=== PATIENT | female | born 1950 | race Caucasian/White ===

== ENCOUNTER → 2023-06-06 19:01 | Outpatient (CLI) | payer MEDICARE, OTHER, SELFPAY ==
--- NOTE | 2023-06-06 | DI.MRI.S_ITS ---
PROCEDURE: MR LUMBAR SPINE WO CON INDICATIONS: spinal stenosis, lumbar region TECHNIQUE: Noncontrast sagittal T1 spin echo and T2 fast echo, sagittal STIR, and T2 fast spin echo through the lumbar spine. In cases with scoliosis, additional coronal T2 fast spin echo may be performed. COMPARISON: [facility], MR, MR LUMBAR SPINE WITHOUT CONTRAST, 09/24/2019, 9:52. [facility] Outside [facility], MR, MR LUMBAR SPINE WITHOUT CONTRAST, 05/29/2018, 13:12. FINDINGS: Image quality: Excellent. Alignment and Curvature: There is approximately 37? left convex scoliosis centered at L2-3. There is trace L1 on L2 and L2 on L3 retrolisthesis and trace L4 on L5 anterolisthesis. Patient is status post posterior fusion and discectomy and anterior fusion at L5-S1. Of note, this patient's scoliotic deformity measured approximately 23? at the same level on the CT dated September 24, 2019. Bone Marrow: Marrow is of normal overall signal. No acute vertebral body compression fractures. Spinal Cord: Conus medullaris terminates at the L1 level. Visualized cord demonstrates normal signal and size. Paraspinous Soft Tissues: No paravertebral masses. T2 hyperintense, probable cysts are present within the left kidney. T12-L1: Moderate disc desiccation and height loss. Broad-based disc bulge. Moderate facet and ligamentum flavum hypertrophy. No canal stenosis. Mild bilateral foraminal narrowing. L1-L2: Moderate disc desiccation and height loss. Severe facet ligamentum flavum hypertrophy. No canal stenosis. Moderate right foraminal stenosis. No left neural foraminal narrowing. L2-L3: Moderate disc desiccation and height loss. Severe facet ligamentum flavum hypertrophy. No canal stenosis. Severe right foraminal narrowing. Mild left foraminal stenosis. L3-L4: Moderate disc desiccation and height loss. Severe facet ligamentum flavum hypertrophy. Moderate right foraminal stenosis. Mild left foraminal narrowing. L4-L5: Severe disc desiccation and height loss. Broad-based disc bulge. Severe facet ligamentum flavum hypertrophy. Severe canal stenosis. Moderate bilateral foraminal stenosis. L5-S1: Moderate disc desiccation and height loss. Severe facet ligamentum flavum hypertrophy. No canal stenosis. Mild left foraminal narrowing. No right neural foraminal stenosis. IMPRESSION: 1. Severe levoscoliosis, markedly increased in extent when compared with the study dated September 24, 2019. 2. Severe canal stenosis is present at L4-5. No other canal stenosis of the lumbar spine. 3. Moderate right foraminal stenosis at L1-2 L3-4 and moderate bilateral foraminal stenosis at L4-5. 4. Severe right foraminal stenosis at L2-3. Dictated by: Joann Goff M.D. on 06/07/2023 at 10:06 Approved by: Joann Goff M.D. on 06/07/2023 at 10:36
== END ==
LOC: MRI 19:06
PROVIDERS: Referring Provider Orthopaedic Surgery Orthopaedic Surgery of the Spine; Visit Provider Orthopaedic Surgery Orthopaedic Surgery of the Spine
DX: M48.062 Spinal stenosis, lumbar region with neurogenic claudication (principal); M48.07 Spinal stenosis, lumbosacral region; M47.816 Spondylosis without myelopathy or radiculopathy, lumbar region; M47.817 Spondylosis without myelopathy or radiculopathy, lumbosacral region; M51.36 Other intervertebral disc degeneration, lumbar region; M41.9 Scoliosis, unspecified; Z98.1 Arthrodesis status
CPT/HCPCS: 72148

== ENCOUNTER → 2023-06-18 06:15 | Outpatient (CLI) | payer MEDICARE, OTHER, SELFPAY ==
--- NOTE | 2023-06-18 06:18 | DI.CT.S_ITS ---
PROCEDURE: CT LUMBAR SPINE WO CON INDICATIONS: Intervertebral disc disorders TECHNIQUE: Noncontrast 3 mm thick sections acquired from the T12 level to the sacrum. Sagittal and coronal reformats were constructed. For radiation dose reduction, the following was used: automated exposure control. COMPARISON: [facility], CR, XR LUMBAR SPINE 2-3V, 06/18/2023, 8:31. FINDINGS: Image quality: Excellent. Bones: Scoliosis of the lumbar spine seen. Postop changes of L5-S1 anterior and posterior fusion, partial laminectomy changes. No perihardware lucency is noted. No acute vertebral body compression fractures. No suspicious lytic or blastic bony lesions. T12-L1: No osseous central canal or bilateral neural foraminal stenosis. Moderate disc space narrowing L1-L2: Moderate osseous right neural foraminal stenosis. No osseous central canal stenosis. Severe disc space destruction with vacuum phenomena L2-L3: Moderate osseous bilateral neural foraminal stenosis, more on the right, no osseous central canal stenosis. Vacuum phenomena of the disc space L3-L4: Moderate osseous right neural foraminal stenosis. No central canal stenosis. Disc space destruction in the vacuum phenomena L4-L5: Moderate bilateral osseous neural foraminal stenosis, no osseous central canal stenosis. . Vacuum phenomena of the disc. Grade 1 anterolisthesis of L4 over L5 with bilateral pars defects. L5-S1: Spinal fusion, discectomy changes. No evidence of osseous bilateral neural foraminal or central canal stenosis. Soft tissues: No retroperitoneal masses or hematomas. Visualized aorta is normal in caliber. IMPRESSION: 1. Postop changes of the lumbar spine as noted above 2. Scoliosis and grade 1 anterolisthesis of L4 over L5. 3. Multilevel osseous neural foraminal stenosis and degenerative disc disease as noted above. Dictated by: Jony Casillas M.D. on 06/18/2023 at 13:41 Approved by: Jony Casillas M.D. on 06/18/2023 at 14:00
--- NOTE | 2023-06-18 12:38 | DI.RAD.S_ITS ---
PROCEDURE: XR LUMBAR SPINE 2-3V INDICATIONS: TLIF ROBOT L5-S1 OLD REST ARE NEW TECHNIQUE: Intraoperative views of the lumbar spine were acquired. COMPARISON: None. FINDINGS: Bones: Intraoperative views during multilevel lumbar spine TLIF. The hardware appears intact. IMPRESSION: Infra operative views during multilevel lumbar spine TLIF with intact hardware. Dictated by: Levon Clark M.D. on 06/18/2023 at 13:32 Approved by: Levon Clark M.D. on 06/18/2023 at 13:33
== END ==
PROVIDERS: PCP Family Medicine; Referring Provider Orthopaedic Surgery Orthopaedic Surgery of the Spine; Visit Provider Orthopaedic Surgery Orthopaedic Surgery of the Spine
DX: M51.16 Intervertebral disc disorders with radiculopathy, lumbar region (principal); M48.061 Spinal stenosis, lumbar region without neurogenic claudication; M41.9 Scoliosis, unspecified; Z98.1 Arthrodesis status
CPT/HCPCS: 72100; 72131; 76000

== ENCOUNTER 2023-06-18 06:19 | Inpatient (IN) | payer MEDICARE, OTHER, SELFPAY ==
[2023-06-11 08:53] VITALS: BMI 25.4
[2023-06-18] VITALS (17 sets, daily range): BP systolic 122–165; BP diastolic 57–93; PULSE 79–104; RESP 12–20; TEMP 36.1–37; O2SAT 95–100; BMI 25.4
[2023-06-18] MEDS: LACTATED RINGERS 1,000 ML 84 ML IV (07:26)
--- NOTE | 2023-06-18 07:32 | SUR.OPER ---
Prone on spine table, head in foam head support, padded chest and pelvic supports, gel pad at knees, lower legs supported by pillows; nipples, genitalia and toes free of pressure, arms secured on foam padded arm boards at <90 degrees abduction. Tape over blanket at thigh secured to table.
--- NOTE | 2023-06-18 07:56 | PM.PREOP ---
Pre-operative Note Interval Note History & Physical reviewed/Exam performed by Physician: Yes Changes to H&P: No
[2023-06-18] MEDS: CEFAZOLIN 2 GM/100 ML PREMIX 100 ML IV ×3 (08:19→23:35)
[2023-06-18] MEDS: BUPIVACAINE LIPOSOME 266 MG/20 ML VIAL INJ (08:42)
[2023-06-18] MEDS: BUPIVACAINE 0.25% (PF) 60 ML, EPINEPHrine 0.15 MG INJ (08:43)
--- NOTE | 2023-06-18 12:50 | PM.OP.1 ---
Operative Date/Time/Diagnoses Date of procedure: 06/18/23 Time of procedure: 07:40 Pre-op diagnosis: 1. L2-3 retrolisthesis 2. L3-4 L4-5 spinal stenosis 3. History of L5-S1 fusion with loosened hardware 4. Lumbar scoliosis 5. Lumbar foraminal stenosis Post-op diagnosis: same Procedure & Clinicians Procedure: 1. L3-4, L4-5 Postero-lateral and posterior interbody fusion 2. L3-4, L4-5 interbody cage placement. 3. L2-3 L5-S1 posterolateral fusion 4. L2-3, L3-4, L4-5 decompressive laminectomy with bilateral facetecomies 5.L2-3 L3-4, L4-5, L5-S1 Posterior segmental instrumentation 6. L5-S1 revision hemilaminectomy and exploration of fusion 7. [place] of bone marrow from iliac crest 8. Utilization of microsurgical technique and operating microscope 9. Utilization of robotic assisted navigation Same procedure as scheduled: Yes Indications: Patient has been having chronic back pain and worsening lumbar radiculopathy. Patient had L5-S1 anterior-posterior spinal fusion with possible pseudoarthrosis from several years ago. Patient has significant mechanical back pain due to her progressively worsening lumbar scoliosis with radiculopathy secondary to her foraminal stenosis. Patient failed multiple conservative management with worsening back pain , leg weakness and numbness in her lower extremity. Patient has been having difficulty performing activity of daily living. After discussing risks benefits of treatment options, patient elected proceed with surgery. Surgeon: Sal Schroeder [employer] H[employer] Developer: Alexandra Gary Click Yes if Unassisted: No Anesthesia Type: General Operative Notes Closure Type: primary Specimen(s): none sent Prosthetic devices, grafts, tissues, transplants, or devices: Globus CREO MIS screws, Rise cages Applied: catheter Estimated Blood Loss (mL): 100 Blood products transfused: none Procedure in detail: Patient was seen in the preoperative area. Risks and benefits of the surgery was discussed with the patient. Informed consent was obtained from the patient and placed in the chart. Surgical site was marked. Patient was taken to the operative room. General anesthesia was administered. Prophylactic antibiotic was given to the patient less than 30 min before the incision was made. Patient was placed into a prone position on the Axel table. Patient's back was then prepped and draped in the sterile fashion. Time-out was performed at this time. After patient was prepped and draped, patient's PSIS was palpated and marked bilaterally. Small 1 cm incision was made over the PSIS for placement of the reference probes. Two trocar was placed into the PSIS 1 on each side. The reference probe was attached to the trocar of the reference apparatus. At this time the C-arm imaging was used to confirm AP and lateral of L2, L3, L4, L5, and S1 vertebrae and merged the C-arm imaging using the sarvaMAIL robotic navigation system with the CT of the lumbar spine. After successful merging was completed and confirmed, skin marker was used to estrella out the skin incision using the sarvaMAIL robotic arm. Bilateral incision was made at this time. Using patient's previous scar incision was made over the L2, L3 L4, L5-S1 interval on the right side. Fascia was incised in line with skin incision. Patient's previously placed hardware over the L5-S1 level was identified by dissecting down to the level the hardware using a Bovie and a Borden. The locking caps which was removed using [employer]way[employer] screwdriver. The locking dominique was then removed from the tulips of the pedicle screws using a Mel. The pedicle screws were then removed using the screwdriver. The screws at bilateral S1 pedicles were found to be loose concerning for pseudoarthrosis at the L5-S1 level. Pre templated trajectory was used and guided using the sarvaMAIL robotic navigation system for bilateral L2, L3, L4, L5, S1 pedicle screws placement. This was done by using the robotic arm to guide the high-speed bur to make a cortical entry point. Next a drill was placed also using the robotic arm and guided using the navigation system drilling partially through bilateral L2, L3, L4, L5, S1 pedicles. Next L2, L3, L4, L5, S1 pedicle screws it was pre templated and measured was placed onto the power armored car driver and inserted into the pedicles bilaterally. After all 10 screws were placed C-arm imaging was taken of both AP and lateral to confirm the placement. Excellent placement of the screws were confirmed and a matched precisely with the pre planned screw placement using the navigation system. Larger 7.5mm diameter pedicle screws were placed into the bilateral S1 pedicles due to its previously loosened purchase. MARs retractor was inserted using [employer]le[employer] guidence. FindItus MARS retractors was placed inside the incision and docked onto the L3, L4 lamina. Using microsurgical technique and operating microscope, a L3, L4 laminectomy and L3-4, L4-5 facetectomy was performed using a Kerrison rongeur. Patient was found have severe lateral recess and neural foramen stenosis which was fully decompressed after the laminectomy facetectomy. More than 75% of the facets were removed during the process of decompression rendering L3-4, L4-5 level grossly unstable and required a fusion procedure at the same time. The laminectomy and facetectomy was performed in order to decompress patient's cauda equina as well as the nerve roots exiting at the L3-4 L4-5 level. The disc space at L3-4, L4-5 was identified, and a total diskectomy was performed at L3-4, L4-5 level. The endplates were decorticated using a rasp and shaver. The total diskectomy and decortication was performed at L3-4, L4-5 level in order to to accomplish a L3-4, L4-5 fusion. The local bone from the laminectomy and facetectomy was saved for local bone grafting. After the total diskectomy and decortication was completed, Viacell bone graft material was combined with local bone that was harvested earlier. At this time, a separate skin is incision was made over the iliac crest. A Jamshidi needle was inserted into the iliac crest through a separate skin incision. 5 cc of bone marrow aspiration was obtained through the separate skin incision using a Jamshidi needle from the iliac crest. The bone marrow aspiration was combined with local bone and the Viacell bone grafting material. The bone grafting material was placed into the L3-4, L4-5 interbody space along with a expandable cage. The cage was expanded to its maximum height using the torque limiting screwdriver. The disc preparation as well as the cage insertion were also performed under navigation guidance. After the cage was placed, AP and lateral C-arm imaging was taken to confirm placement of the cage and excellent position was confirmed. The fusion mass on the left side of L5-S1 was exposed by performing a right-sided hemilaminectomy at L5-S1 level. The hemilaminectomy was performed using the Kerrison rongeur to undercut the lamina as well removing additional epidural scar tissue for purpose of decompressing the epidural space. The fusion mass was explored and was found have visible motion indicating pseudoarthrosis at L5-S1 level. Globus MARS retractor was inserted and docked onto the L2-3, L5-S1 posterolateral gutter. Using the power drill, posterior-lateral decortication was performed at L2-3 L5-S1 level until bleeding cortical bone was identified. The remaining bone grafting material was placed into the L2-3, L5-S1 posterior lateral gutter he order to accomplish posterolateral fusion at the L2-3, L5-H5vnbea. At this time the tulips were attached to the L2, L3 L4-L5 and S1 pedicle screw shanks. This was done in L2, L3 L4-L5 and S1 pedicles bilaterally. After measuring the length of the rods, they were inserted into the tulips of the pedicle screws and locked in place using locking caps and torque limiting screwdriver bilaterally. Total 10 caps and 2 titanium rods was used in order to complete the posterior instrumentation construct. After all the hardware was placed, and confirmed with AP and lateral C-arm imaging, the wound was then irrigated with sterile normal saline and packed with Ray-Genet gauze for 3 min to accomplish hemostasis. After the gauze was removed the deep fascia was closed with #1 Vicryl suture. The subcutaneous layer was closed with 2-0 Vicryl. The skin was closed with skin yair. Patient tolerated the procedure well. There were no complications. Neuro monitoring system was used to monitor patient's neurologic status throughout entire procedure. There was no disturbance of the neural monitoring signals throughout the case. The Operation could not have been safely performed without compromising the technical result or length of the procedure, without the assistance of a skilled ophthalmology surgical technician. The ophthalmology surgical technician was medically necessary for proper positioning, retraction and manipulation of instruments, proper exposure, surgical preparation, and manipulation of tissue.
[2023-06-18] MEDS: ACETAMINOPHEN IV 1,000 MG/100 ML VIAL 400 MG IV (13:08)
[2023-06-18] MEDS: KETOROLAC 30 MG/ML VIAL 15 MG IV (13:11)
[2023-06-18] MEDS: hydrOXYzine 50 MG/ML INJ 25 MG IM (13:20)
[2023-06-18] MEDS: fentaNYL 100 MCG/2 ML INJ IV (13:29)
[2023-06-18] MEDS: HYDROMORPHONE 1 MG INJ IV ×2 (13:41→13:45)
[2023-06-18] MEDS: LACTATED RINGERS 1,000 ML 125 ML IV ×2 (14:44→22:03)
[2023-06-18] MEDS: HYDROMORPHONE 0.5 MG INJ IV ×3 (14:57→22:03)
[2023-06-18] MEDS: OXYCODONE IR 5 MG TABLET PO (15:36)
[2023-06-18] MEDS: ACETAMINOPHEN 325 MG TABLET 650 MG PO (16:07)
[2023-06-18] MEDS: CYCLOBENZAPRINE 10 MG TABLET PO ×2 (16:16→20:21)
[2023-06-18] MEDS: diazePAM 5 MG TABLET PO (16:18)
[2023-06-18] MEDS: OXYCODONE IR 5 MG TABLET 10 MG PO ×3 (16:45→23:33)
[2023-06-18] MEDS: IPRATROPIUM 0.5 MG/2.5 ML NEB INH (19:43)
[2023-06-18] MEDS: DOCUSATE 100 MG CAPSULE PO (20:21)
[2023-06-18] MEDS: MONTELUKAST 10 MG TABLET PO (20:21)
[2023-06-18] MEDS: VIT C/E/ZN/COPPR/LUTEIN/ZEAXAN CAPSULE 1 CAP PO (20:22)
[2023-06-18] MEDS: SENNOSIDES 8.6 MG TABLET 17.2 MG PO (20:22)
[2023-06-18] MEDS: PSEUDOEPHEDRINE 30 MG TABLET 60 MG PO (21:28)
--- NOTE | 2023-06-18 23:54 | PC.NURSE ---
Pt. agreed to repositioned her on her right side. Reported I have been through a lot of surgeries, but this time no matter how much pain medicine your given me it did not help. Rated her pain level @ 10/10 & encouraged & turned her turn to her side with pillow behind her back. States I was on my back for a while cause it hurts to move. Administered 0100 dose of Oxycodone early due highest pain scale, had her Dilaudid @ 2203. Declined some Diazepam, after we repositioned her she states this fell a little better. Encouraged to change position every 2 hours or more often to help ease her pain. Will continue plan of care & monitor.
[2023-06-19] VITALS (11 sets, daily range): BP systolic 113–149; BP diastolic 44–94; PULSE 78–108; RESP 16–20; TEMP 35.7–37.4; O2SAT 90–100
[2023-06-19] MEDS: HYDROMORPHONE 0.5 MG INJ IV ×7 (00:59→21:43)
--- NOTE | 2023-06-19 01:26 | PC.NURSE ---
Pain level 8/10 requesting pain medication, 0.5 mg. Dilaudid IVP admin. Pt. drowsy falls asleep in the middle of the conversation. Will monitor, 1 liter of O2/NC SPO2 97%
[2023-06-19] MEDS: ACETAMINOPHEN 325 MG TABLET 650 MG PO ×4 (04:15→21:28)
[2023-06-19] MEDS: OXYCODONE IR 5 MG TABLET 10 MG PO ×5 (04:15→21:26)
[2023-06-19 04:41] LABS: Hematocrit 31.1 % (36-46); Hemoglobin 10.6 g/dL (12.0-16.0)
[2023-06-19] MEDS: diazePAM 5 MG TABLET PO ×2 (05:04→21:25)
[2023-06-19] MEDS: IPRATROPIUM 0.5 MG/2.5 ML NEB INH ×3 (07:18→18:31)
--- NOTE | 2023-06-19 07:42 | PM.PNPO.1 ---
Subjective Subjective Date Patient Seen: 06/19/23 Time Patient Seen: 07:42 Interval history: Pt lying in bed, receiving breathing treatment. She has a h/o 1/2 ppd smoking; ordered a nicotine patch, but says she does not need it. She has a h/o opioid dependence, 60mg oxycodone/day at baseline. She c/o 'the worst pain of my life.' Has pain in back and legs. Despite this, is hopeful to go home tomorrow and to this end is in agreement w/ discontinuation of catheter today. Exam Vital Signs (past 8 hours): - 06/18/23 23:56 06/19/23 03:38 06/19/23 07:21 Temperature 98.3 F 98.1 F Pulse Rate 86 86 Respiratory Rate 20 18 Blood Pressure 144/82 H 141/63 H Pulse Oximetry 97 98 Oxygen Delivery Method Nasal Cannula Oxygen Flow Rate 1 1 Oxygen Delivery Method Nasal Cannula Oxygen Flow Rate 1 Narrative Exam Narrative: 4/5 hip flexors on right, 3/5 on left. 5/5 quadriceps, hamstrings, DF, PF, EHL bilaterally. Sensation to light touch intact throughout BLE, calves soft and compressible. SCDs on and functioning. Objective Labs 06/19/23 04:32 Labs: Laboratory Results - last 24 hr 06/19/23 04:32 Hgb 10.6 L Hct 31.1 L PFSH Medical History (Updated 06/18/23 @ 16:03 by Alexandra Gary PA-C) Chronic, continuous use of opioids Arthritis Spinal stenosis Breast cancer, right (1986) Seasonal allergies Sciatica Surgical History (Updated 06/19/23 @ 07:45 by Alexandra Gary PA-C) History of bunionectomy of right great toe History of breast implant Hx of breast reconstruction (1987) Hx of bilateral mastectomy (1986) Hx of repair of right rotator cuff (2020) Hx of foot surgery Hx of lumbosacral spine surgery (~2015) Hx of lumbosacral spine surgery (2019) Hx of vaginal surgery (2015) Hx of tubal ligation Hx of bilateral cataract extraction Social History household members: family Smoking Status: Current every day smoker alcohol intake: current Assessment & Plan Post-op Assessment and plan (1) S/P lumbar fusion: Assessment and Plan narrative: 1) Discontinue silveira today. Work w/ PT. 2) Continue current pain regimen: oxy 10mg q4hrs scheduled w/ oxy 5mg q3hrs PRN for breakthrough pain. Cyclobenzaprine scheduled and diazepam PRN for muscle spasm. 3) Mechanical VTE prophylaxis with SCDs; these should be on and functioning at all times while pt in bed. 4) Pt is hopeful to go home tomorrow w/ Enrique, her grandson. We discussed that at discharge she would receive ONE prescription for oxycodone 5mg (#40), cyclobenzaprine 10mg (#40), and diazepam 5mg (#30) from our providers. She is to continue her Percocet as normally prescribed by her pain management provider. Postoperative Procedures: Procedures Operation Date: 06/18/23 07:45 Actual Procedure Side Surgeon p L3-5 TRANSFORAMINAL LUMBAR INTERBODY FUSION, L2-L3 POSTERIOR SPINAL FUSION, L2-S1 POSTERIOR SEGMENTAL INSTRUMENTATION-Robot Sal Schroeder MD Postoperative day: 1 Quality VTE Deep Vein Thrombosis/Pulmonary Embolism Present on Admission: No
[2023-06-19] MEDS: VIT C/E/ZN/COPPR/LUTEIN/ZEAXAN CAPSULE 1 CAP PO ×2 (08:45→21:24)
[2023-06-19] MEDS: CYCLOBENZAPRINE 10 MG TABLET PO ×4 (08:45→21:28)
[2023-06-19] MEDS: DOCUSATE 100 MG CAPSULE PO ×2 (08:45→21:26)
[2023-06-19] MEDS: polyethylene glycoL 3350 17 GM POWD.PACK PO (08:46)
[2023-06-19] MEDS: PSEUDOEPHEDRINE 30 MG TABLET 60 MG PO ×3 (08:46→21:25)
[2023-06-19] MEDS: LACTATED RINGERS 1,000 ML 125 ML IV (08:47)
--- NOTE | 2023-06-19 10:15 | PT.IIE ---
Current Diagnoses Opioid use, unspecified, uncomplicated (06/18/23) Scoliosis, unspecified (06/18/23) Spinal stenosis, lumbar region with neurogenic claudication (06/18/23) Arthrodesis status (06/18/23) Surgery Performed Operation Date: 06/18/23 07:45 Actual Procedures p L3-5 TRANSFORAMINAL LUMBAR INTERBODY FUSION, L2-L3 POSTERIOR SPINAL FUSION, L2-S1 POSTERIOR SEGMENTAL INSTRUMENTATION-Robot - Sal Schroeder MD Surgical History (Last Updated 06/11/23 @ 09:19 by Cristina Byrd RN) History of breast implant History of bunionectomy of right great toe Hx of bilateral cataract extraction Hx of bilateral mastectomy (1986) Hx of breast reconstruction (1987) Hx of foot surgery Hx of lumbosacral spine surgery (2019) Hx of lumbosacral spine surgery () Hx of repair of right rotator cuff (2020) Hx of tubal ligation Hx of vaginal surgery (2015) Medical History (Last Updated 06/18/23 @ 16:03 by Alexandra Gary PA-C) Arthritis Breast cancer, right (1986) Chronic, continuous use of opioids Sciatica Seasonal allergies Spinal stenosis Physical Therapy Inpatient Evaluation/Re-Eval M1 PT/OT-IP Prior Functional Status Start: 06/19/23 12:00 Freq: NEEDED Status: Active Protocol: Document 06/19/23 10:15 AB (Rec: 06/19/23 12:10 AB [id number]) Medical Review Prior Functional Status Medical History Reviewed Yes Communication Pt is an effective verbal communicator. Mobility and Gait Pt was IND for all mobility. She states that she is usually standing because sitting is more painful. Activities of Daily Living and IADL's Pt was IND in her ADLs at baseline but states that her pain was making things more difficult to perform. Social History Household Members family Living Arrangements House Number of Floors (Floors) One Floor Number of Stairs To Enter/Railing? Pt has 3 steps to enter with B wide railings and can only hold on to one rail at a time Home Environment Standard Height Toilet,Walk in Shower,Built-In Shower Seat Home Equipment Front Wheel Walker,Raised Toilet Seat w/Armrests,Shower Seat with Backrest,Hand Held Shower,Sales And Marketing Administrator,Grab Bars In Shower Employment Status Retired Additional Social History Comment Pt's grandson lives with her and is able to stay with her daytime babysitter. She has an adjustible bed and a piece of furnature called a slipper chair that she uses for LB dressing which is closer to the ground. M2 PT-IP Current Condition Start: 06/19/23 12:00 Freq: NEEDED Status: Active Protocol: Document 06/19/23 10:15 AB (Rec: 06/19/23 12:10 AB [id number]) Physical Therapy Current Condition Current Condition Evaluation Date 06/19/23 Treatment Diagnosis s/p L2-S1 TLIF; difficulty in walking Onset Date 06/18/23 M3 PT-IP Subjective Start: 06/19/23 12:00 Freq: NEEDED Status: Active Protocol: Document 06/19/23 10:15 AB (Rec: 06/19/23 12:10 AB [id number]) Subjective Physical Therapy Visit Type Type Initial Evaluation Visit Start Time 10:15 Visit Stop Time 11:00 Number of TRENCH DIGGER HELPER Visits 0 Physical Therapy Visit Comments Patient Comments agreeable to do PT Therapy Pain Assessment Pain When Pain Assessed At Rest Pain Present Pain Present Pain Reported Location Right Back Intensity 5 Pain Behaviors Guarding,Holding Area Pain Management Techniques Apply Cold,Distraction, Modification of Treatment,Re- positioning,Timing of Activity with Medications M4 PT-IP Mobility and Gait Start: 06/19/23 12:00 Freq: NEEDED Status: Active Protocol: Document 06/19/23 10:15 AB (Rec: 06/19/23 12:10 AB [id number]) PT-Bed Mobility Assessment Rolling Type of Rolling Log Rolling Level of Assist Maximal Assistance Supine to Sit Supine to Sit Maximum Assistance,1 Person Assistance,2 Person Assistance ,Head of Bed Elevated,Bedrails PT-Transfer Assessment Sit to and From Stand Sit to and from Stand Minimal Assistance,1 Person Assistance,Use of Upper Extremities Equipment Transfer Assistive Device Gait Belt,Front Wheeled Walker Orthotic/Prosthetic Devices or Brace: No Transfers Transfer Destination Chair Transfer Technique ambulated Transfer Ability Level of Assist Minimal Assistance,1 Person Assistance,Use of Upper Extremities Comments Mobility Comments pt supine in bed and agreed to do PT. obtained PLOF and home set up from pt. educated pt regarding back precautions and log roll bed mobility. post-op folder provided and reiviewed contents. pt completed supine to sit log roll max A x 1-2 and max cues . pt requiring 2 attempts to complete task with c/o increase LBP and guarding. pt requiring mod to max A for sitting balance. pt stand up once seated and unable to tolerate sitting position needing to stand up. pt ambulated to the chair using FWW ~ 15 ft min A and cues. pt presents with shuffling gait. pt agreed to sit on the chair. positioned pt on the chair. ice pack provided. call light and table placed within reach. Left pt with OT. Gait Assessment Gait Gait Assistance Required: Minimum Assistance Distance (Feet) 15 Able to Maintain Weight Bearing Status Yes During Gait Assistive Devices Assistive Device Gait Belt,Front Wheeled Walker Orthotic/Prosthetic Devices or Brace: No Gait Deviations General Gait Pattern Ataxic,Decreased Stride Length ,Decreased Feet Clearance,Step -to Gait Factors Limiting Gait Function Factors Limiting Gait Function Decreased Activity Tolerance, Decreased Strength,Difficulty Following Directions,Limited Range of Motion,Pain,Poor Balance,Poor Safety Awareness PT-Balance Assessment Sitting Balance and Reactions Static Sitting Balance Ability Fair Dynamic Sitting Balance Ability Poor Standing Balance and Reactions Static Standing Balance Ability Fair Dynamic Standing Balance Ability Fair Device Used FWW M5 PT-IP Objective Assessments Start: 06/19/23 12:00 Freq: NEEDED Status: Active Protocol: Document 06/19/23 10:15 AB (Rec: 06/19/23 12:10 AB [id number]) Orientation Orientation/Cognition Level of Alertness Alert Orientation Name,Situation Safety Awareness Decreased Safety Awareness Gross Range of Motion Lower Extremity ROM Assessment Within Functional Limits Strength Lower Extremity Strength Assessment Bilaterally Impaired Comments Strength Comments RLE: 3+/5 LLE: 4-/5 Coordination Assessment Gross Coordination Gross Coordination WNL Muscle Tone Muscle Tone WNL Yes M6 PT-IP Treatment Start: 06/19/23 12:00 Freq: NEEDED Status: Active Protocol: Document 06/19/23 10:15 AB (Rec: 06/19/23 12:10 AB [id number]) Physical Therapy Treatment Education Education Provided Precautions,Weight Bearing Status,Post-Op Packet,Safety M7 PT-IP Assessment and Plan Start: 06/19/23 12:00 Freq: NEEDED Status: Active Protocol: Document 06/19/23 10:15 AB (Rec: 06/19/23 12:10 AB [id number]) PT Summary Assessment and Plan Potential Rehabilitation Potential Fair Status of Condition at Evaluation Evolving Summary Impairments Pain,ROM,Strength,Balance, Coordination,Sensation,Tone, Cognition,Bed Mobility, Transfers,Gait,Activity Tolerance Assessment Summary pt is a 73 y/o F s/p L2-S1 TLIF POD 1. pt has back precautions. pt with chronic pain and c/o increase LBP with mobility. pt requiring max Ax 1-2 with bed mobility and unable to tolerate sitting position. required min A for sit to stand and ambulation using FWW. caregiver training set up for this afternoon at ~ 2pm. will continue to assess progress. Goals Bed Mobility Goal Independent,Standby Assistance Transfer Goal Standby Assistance,Front Wheeled Walker Gait Goal Standby Assistance,Front Wheel Walker Gait Distance 200 Other Goals up/down 3 steps 1 rail SBA Days to Meet Goals 10 Frequency of Treatment Frequency Of Treatment Twice a Day Treatment Plan Physical Therapy Treatment Plan Bed Mobility Training,Transfer Training,Gait Training, Therapeutic Exercise,Balance Retraining,Post Op Education, Discharge Planning,Hot or Cold Pack,Neuromuscular Re-ed, Coordination Retraining,Manual Therapy Precautions Lumbar Precautions Log Roll,No Twisting,Limit Bending,Lifting Restriction of 10 lbs,Gait Belt above Incisional Area Recommendations To Nursing Amount of Assist Needed 1 Person Assist Discharge Recommendations PT Discharge Recommendations Home with 16/10 Assist Available,Home Health Transportation Needs at Discharge Private Vehicle,Wheelchair/ Cabulance
--- NOTE | 2023-06-19 11:02 | OT.IP.EVAL ---
Current Diagnoses Opioid use, unspecified, uncomplicated (06/18/23) Scoliosis, unspecified (06/18/23) Spinal stenosis, lumbar region with neurogenic claudication (06/18/23) Arthrodesis status (06/18/23) Surgery Performed Operation Date: 06/18/23 07:45 Actual Procedures p L3-5 TRANSFORAMINAL LUMBAR INTERBODY FUSION, L2-L3 POSTERIOR SPINAL FUSION, L2-S1 POSTERIOR SEGMENTAL INSTRUMENTATION-Robot - Sal Schroeder MD Past Medical History (Last Updated 06/18/23 @ 16:03 by Alexandra Gary PA-C) Arthritis Breast cancer, right (1986) Chronic, continuous use of opioids Sciatica Seasonal allergies Spinal stenosis Surgical History (Last Updated 06/11/23 @ 09:19 by Cristina Byrd RN) History of breast implant History of bunionectomy of right great toe Hx of bilateral cataract extraction Hx of bilateral mastectomy (1986) Hx of breast reconstruction (1987) Hx of foot surgery Hx of lumbosacral spine surgery (2019) Hx of lumbosacral spine surgery (~2015) Hx of repair of right rotator cuff (2020) Hx of tubal ligation Hx of vaginal surgery (2015) Occupational Therapy Inpatient Evaluation/Re-Eval M1 PT/OT-IP Prior Functional Status Start: 06/19/23 11:05 Freq: NEEDED Status: Active Protocol: Document 06/19/23 11:05 CGR (Rec: 06/19/23 11:18 CGR [id number]) Medical Review Prior Functional Status Medical History Reviewed Yes Communication Pt is an effective verbal communicator. Mobility and Gait Pt was IND for all mobility. She states that she is usually standing because sitting is more painful. Activities of Daily Living and IADL's Pt was IND in her ADLs at baseline but states that her pain was making things more difficult to perform. Social History Household Members family Living Arrangements House Number of Floors (Floors) One Floor Number of Stairs To Enter/Railing? Pt has 3 steps to enter with B wide railings. Home Environment Standard Height Toilet,Walk in Shower,Built-In Shower Seat Home Equipment Front Wheel Walker,Raised Toilet Seat w/Armrests,Shower Seat with Backrest,Automobile Rental Agent, Grab Bars In Shower Employment Status Retired Additional Social History Comment Pt's grandson lives with her and is able to stay with her radio time buyer. She has an adjustible bed and a piece of furnature called a slipper chair that she uses for LB dressing which is closer to the ground. M2 OT-IP Current Condition Start: 06/19/23 11:05 Freq: Status: Active Protocol: Document 06/19/23 11:05 CGR (Rec: 06/19/23 11:18 CGR [id number]) Occupational Therapy Current Condition Current Condition Evaluation Date 06/19/23 Treatment Diagnosis L2-S1 TLIF Diagnosis Onset Date 06/18/23 Post Operative Precautions Lumbar Precautions Log Roll,No Twisting,Limit Bending,Lifting Restriction of 10 lbs,Gait Belt above Incisional Area M3 OT- IP Subjective and Pain Start: 06/19/23 11:05 Freq: Status: Active Protocol: Document 06/19/23 11:05 CGR (Rec: 06/19/23 11:18 CGR [id number]) OT- Subjective Occupational Therapy Visit Type Type Initial Evaluation Visit Start Time 10:28 Visit Stop Time 11:02 Notes Partial co-treat with P.T. given pt's pain level. Occupational Therapy Visit Comments Patient Comments I am usually standing because it is more comfortable than sitting. OT Pain Assessment Pain When Pain Assessed At Rest Pain Present Pain Present Pain Reported Location Right Back Intensity 8 Scale Used Numeric (0 - 10) Pain Behaviors Calling Out,Guarding,Moaning Management Techniques Apply Cold,Distraction, Modification of Treatment,Re- positioning,Timing of Activity with Medications M4 OT- IP ADL's Start: 06/19/23 11:05 Freq: Status: Active Protocol: Document 06/19/23 11:05 CGR (Rec: 06/19/23 11:18 CGR [id number]) OT [id number] Comments OT Self-Feeding Comments not meal time OT ADL-Grooming General Evaluation Grooming Ability Standby Assistance Areas Needing Assistance Retrieving/Set-up of Grooming Items,Face Washing Comments OT Grooming Comments seated in chair OT ADL-Oral Care General Eval Oral Care Ability Standby Assistance Areas of Assistance Brushing Teeth,Retrieving/Set- Up of Items Comments Oral Care Comments seated in chair OT ADL-Dressing General Eval Lower Body Dressing Ability Total Assistance Areas Needing Assistance Socks OT ADL-Toileting General Evaluation Toileting Ability Total Assistance Comments OT Toileting Comments silveira OT ADL-Bathing Comments OT Bathing Comments not performed M5 OT- IP IADL's Start: 06/19/23 11:05 Freq: Status: Active Protocol: Document 06/19/23 11:05 CGR (Rec: 06/19/23 11:18 CGR [id number]) OT-Instrumental Activities of Daily Living Deficits IADL Deficits Identified No Deficits Home Safety Awareness Awareness of Need for Assistance at Home Good Awareness Ability to Problem Solve Emergency Able to Problem Solve Situations Medication Management Medication Management No Deficits Identified Money Management Money Management No Deficits Identified Meal Preparation Meal Preparation Caregiver Provides Assist Special Officer Special Officer Caregiver Provides Assist Driving Driving Comments 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 M6 OT- IP Functional Cognition Start: 06/19/23 11:05 Freq: Status: Active Protocol: Document 06/19/23 11:05 CGR (Rec: 06/19/23 11:18 CGR [id number]) Cognitive Factors Limiting Selfcare Function Cognitive Ability Level of Alertness Alert Patient Orientation Name,Age,Birthday,Month,Date, Year,Day of Week,Place, Situation Attention Span Ability Capable of Focused Attention, Capable of Sustained Attention Ability to Follow Commands Able to Follow One Step Commands with Increased Time, Able to Follow One Step Commands with Repetition OT- Vision and Hearing OT- Hearing Assessment OT- Hearing Assessment WFL OT- Vision Assessment Visual Acuity No Vision Aides At Hospital Visual Attentiveness WFL Occular Pursuits WFL Visual Convergence WFL Vision Assessment Comments Pt states she wears glasses for distance M7 OT- IP Mobility and Balance Start: 06/19/23 11:05 Freq: Status: Active Protocol: Document 06/19/23 11:05 CGR (Rec: 06/19/23 11:18 CGR [id number]) OT- Bed Mobility Assessment Rolling Type of Rolling Log Rolling,Roll to Left Level of Assistance Maximum Assistance,1 Person Assistance,2 Person Assistance Supine to Sit Supine to Sit Assist Maximum Assistance,1 Person Assistance,2 Person Assistance Scooting Scooting to Edge of Bed Moderate Assistance,1 Person Assistance OT-Transfer Assessment Sit to and From Stand Sit to and from Stand Minimal Assistance Transfers Transfer Ability Minimal Assistance Technique Transfer Destination Bed,Chair Transfer Technique Stand Step Pivot Devices Transfer Assistive Devices Gait Belt,Front Wheeled Walker Comments Mobility Comments Pt needed max a for log roll and supine to sit, mod a for scooting and min a once standing. OT- Gait Assessment Gait Gait Assistance Required: Minimum Assistance Assistive Devices Assistive Device Gait Belt,Front Wheeled Walker Comments Gait Ability Comments Mobility in the room, min a with FWW and extra time. Pt taking small steps. OT- Balance Assessment Sitting Balance and Reactions Static Sitting Balance Ability Fair Dynamic Sitting Balance Ability Fair M8 OT- IP Objective Assessments Start: 06/19/23 11:05 Freq: Status: Active Protocol: Document 06/19/23 11:05 CGR (Rec: 06/19/23 11:18 CGR [id number]) OT Gross Range of Motion Upper Extremity Range of Motion Assessment Within Functional Limits OT Strength Upper Extremity Strength Assessment Within Functional Limits Comments Strength Comments grossly 4/5, shlds not fully tested d/t recent back sx. OT- Coordination Assessment Upper Extremity Finger to Nose Test Within Functional Limits Finger Tapping Test Within Functional Limits Comments Coordination Comments Pt states she has arthritic changes to her hands that hurt in the mornings. OT-Muscle Tone Assessment Muscle Tone WNL Yes OT Sensation Assessment Edema Edema Absent M9 OT- IP Assessment and Plan Start: 06/19/23 11:05 Freq: Status: Active Protocol: Document 06/19/23 11:05 CGR (Rec: 06/19/23 11:18 CGR [id number]) OT Summary Assessment and Plan Potential Rehabilitation Potential Good Analytic Complexity at Evaluation Moderate Summary OT Impairments Pain,Balance,Functional Mobility,Grooming,Dressing, Toileting,Bathing,Toilet Transfers,Shower Transfers, Activity Tolerance Progress Towards Goals Slow Progress due to Pain Assessment Summary Pt presents as a moderate complexity evaluation s/p admit for L2-S1 TLIF. Pt needed significant assist for bed mobility today but is likely to improve. Pt did well with her mobility around the room and will continue to benefit from OT services. Pt is planning to discharge home tomorrow. Recommend d/c to home with family support. Goals Self-Feeding Goal Independent Grooming Goal Independent Dressing Goal Independent,Automobile Rental Agent,Sock Aid Toileting Goal Independent Bathing Goal Independent Toilet Transfer Goal Independent Shower Transfer Goal Independent Days to Meet Goals 3 Frequency of Treatment Frequency Of Treatment Once a Day Treatment Plan OT Treatment Plan ADL Training,Functional Mobility,Patient/Family Education,Discharge Planning Other Treatment Recommendations and Next LB dressing, ADLs standing, Treatment Focus home safety Discharge Recommendations OT Discharge Recommendations Home with Assistance Transportation Needs at Discharge Private Vehicle
--- NOTE | 2023-06-19 12:12 | PC.NURSE ---
Physical therapy found a pill in pt's bed and RN took to pharmacy to identify- It was was - pt's home medication as we do not stock this med. This RN had a conversation with pt regarding not taking home medications for safety reasons. pt stated that she understood. Informed pt that her home medications had to be locked in pharmacy- Found a small bag filled with home medications and two inhalers. Walked medications down to pharmacy and gave to Susie.
--- NOTE | 2023-06-19 13:58 | PT.IPTN ---
Current Diagnoses Opioid use, unspecified, uncomplicated (06/18/23) Scoliosis, unspecified (06/18/23) Spinal stenosis, lumbar region with neurogenic claudication (06/18/23) Arthrodesis status (06/18/23) Surgery Performed Operation Date: 06/18/23 07:45 Actual Procedures p L3-5 TRANSFORAMINAL LUMBAR INTERBODY FUSION, L2-L3 POSTERIOR SPINAL FUSION, L2-S1 POSTERIOR SEGMENTAL INSTRUMENTATION-Robot - Sal Schroeder MD Physical Therapy Treatment Note M2 PT-IP Current Condition Start: 06/19/23 12:00 Freq: NEEDED Status: Active Protocol: Document 06/19/23 10:15 AB (Rec: 06/19/23 12:10 AB [id number]) Physical Therapy Current Condition Current Condition Evaluation Date 06/19/23 Treatment Diagnosis s/p L2-S1 TLIF; difficulty in walking Onset Date 06/18/23 M3 PT-IP Subjective Start: 06/19/23 12:00 Freq: NEEDED Status: Active Protocol: Document 06/19/23 13:58 AB (Rec: 06/19/23 16:43 AB [id number]) Subjective Physical Therapy Visit Type Type Treatment Note Visit Start Time 13:58 Visit Stop Time 14:50 Number of REFRIGERATOR CRATER Visits 0 Physical Therapy Visit Comments Patient Comments c/o increase LBP L>R Therapy Pain Assessment Pain When Pain Assessed At Rest Pain Present Pain Present Pain Reported Location Right Back Scale Used pain scale not stated Pain Management Techniques Distraction,Modification of Treatment,Re-positioning, Timing of Activity with Medications M4 PT-IP Mobility and Gait Start: 06/19/23 12:00 Freq: NEEDED Status: Active Protocol: Document 06/19/23 13:58 AB (Rec: 06/19/23 16:43 AB [id number]) PT-Bed Mobility Assessment Sit to Supine Sit to Supine Maximum Assistance,1 Person Assistance,2 Person Assistance ,Bedrails Scooting Scooting Up and Down in Bed Maximum Assistance PT-Transfer Assessment Sit to and From Stand Sit to and from Stand Maximum Assistance,1 Person Assistance,2 Person Assistance ,Use of Upper Extremities Equipment Transfer Assistive Device Gait Belt,Front Wheeled Walker Orthotic/Prosthetic Devices or Brace: No Transfers Transfer Destination Bed Transfer Technique Stand Step Pivot Transfer Ability Level of Assist Moderate Assistance,1 Person Assistance,Use of Upper Extremities Comments Mobility Comments pt sitting on the chair and grandson in room with pt. pt c/o increase LBP. son stated that pt's pain should be controlled. pt just received pain med ~ 30 min prior to PT session. called nurse for pain. trini stated that he has been assisting pt for 3 years and that he knows how to assist pt and is not really receptive to education/ training. pt informed trini that PT still needs to see how he assists her. nurse gave pt IV dilaudid for pain meds. educated pt's grandson on safety belt management and pt' s back precautions and log roll bed mobility. trini was able to put safety belt on pt. attempted sit to stand from the chair but pt unable to complete due to c/o increase LBP with L>R. attempted x 2. NAC came in to assist and pt completed sit to stand max A x 2 and max cues. pt requested to go back to bed and completed step transfers to bed usign fWW mod A and max cues. son stated that pt will not be able to get into the bed the way that pt did with PT. stated that pt has a high bed. asked trini if pt buttocks will be able to reach the EOB and pt can scoot back onto the chair and a step stool also can be used. trini stated that pt 's buttocks will not be able to reach but per pt, she will be able to. informed pt and son that the other option to to sleep on a recliner for now but pt stated that she does not have a recliner. explained to pt and grandson that home set up should have been done prior to surgery and PT can only make recommendations. pt completed sit to supine max A x1- 2 and max cues. positioned pt in bed. call light and table placed within reach. set up another caregiver training for tomorrow. son hesitant to do training but stated that he can come whatever time pt asks him to come. PT asked pt on what time she wants for caregiver training and pt stated, whatever time PT wants . initially asked for 9 am but when pt asked her grandson , trini will not be able to come at 9. Set up caregiver training at 1100 am . Son also clarified stairs at home. stated that pt will be going into the house through the garage with 2 steps to enter without rails. pt will not be going to the front of the house with 3 steps and bilateral wide rails. stated that the stairs from the garage are smaller and that he will assist with the stairs and that he is more stable the the rails. M5 PT-IP Objective Assessments Start: 06/19/23 12:00 Freq: NEEDED Status: Active Protocol: Document 06/19/23 10:15 AB (Rec: 06/19/23 12:10 AB [id number]) Orientation Orientation/Cognition Level of Alertness Alert Orientation Name,Situation Safety Awareness Decreased Safety Awareness Gross Range of Motion Lower Extremity ROM Assessment Within Functional Limits Strength Lower Extremity Strength Assessment Bilaterally Impaired Comments Strength Comments RLE: 3+/5 LLE: 4-/5 Coordination Assessment Gross Coordination Gross Coordination WNL Muscle Tone Muscle Tone WNL Yes M6 PT-IP Treatment Start: 06/19/23 12:00 Freq: NEEDED Status: Active Protocol: Document 06/19/23 13:58 AB (Rec: 06/19/23 16:43 AB [id number]) Physical Therapy Treatment Education Education Provided Precautions,Safety M7 PT-IP Assessment and Plan Start: 06/19/23 12:00 Freq: NEEDED Status: Active Protocol: Document 06/19/23 13:58 AB (Rec: 06/19/23 16:43 AB [id number]) PT Summary Assessment and Plan Potential Rehabilitation Potential Fair Summary Impairments Pain,ROM,Strength,Balance, Coordination,Sensation,Tone, Cognition,Bed Mobility, Transfers,Gait,Activity Tolerance Assessment Summary Pt's trini in room for caregiver training and initiated but needs more training. Pt unable to tolerate much activity this afternoon due to c/o increase back pain. Trini stated that he has been assisting pt for the last 3 years and does not feel like he needs the training and tends not to be very receptive to training but agreed to do training. set up another caregiver training at 11 am tomorrow. will continue to assess progress. Goals Bed Mobility Goal Independent,Standby Assistance Transfer Goal Standby Assistance,Front Wheeled Walker Gait Goal Standby Assistance,Front Wheel Walker Gait Distance 200 Other Goals up/down 2 steps PHYSICIAN GENERAL PRACTICE min A Days to Meet Goals 10 Frequency of Treatment Frequency Of Treatment Twice a Day Treatment Plan Physical Therapy Treatment Plan Bed Mobility Training,Transfer Training,Gait Training, Therapeutic Exercise,Balance Retraining,Post Op Education, Discharge Planning,Hot or Cold Pack,Neuromuscular Re-ed, Coordination Retraining,Manual Therapy Precautions Lumbar Precautions Log Roll,No Twisting,Limit Bending,Lifting Restriction of 10 lbs,Gait Belt above Incisional Area Recommendations To Nursing Amount of Assist Needed 2 Person Assist Discharge Recommendations PT Discharge Recommendations Home with 16/10 Assist Available,Home Health Transportation Needs at Discharge Private Vehicle,Wheelchair/ Cabulance
--- NOTE | 2023-06-19 14:00 | CM.DANOTE ---
Initial DCP Assessment Visit Note Reviewed the EMR and team rounds for pt's medical status and anticipated d/c needs. Met with pt at bedside to introduce self and role, pt was found to be sitting upright in the recliner, somnolent, c/o severe pain, the worst pain I've had in my entire life. She had just been medicated 20-minutes prior to this visit, however she does have a known high tolerance to opioids due to chronic pain and multiple prior surgeries. She resides in her own home in [place] with her grandson, who will be providing care/assistance for her at d/c, as well as transport home. Her anticipated d/c is for tomorrow, 06/19. Payor: Medicare Attending: Dr. Schroeder Pt is a 73 year-old F post-op day 1 from her TLIF surgery yesterday. She is having postoperative complications with pain, limiting her ability to tolerate working with therapies. She is typically independent at baseline, however has been more dependent on her grandson for assistance due to pain limiting her mobility and ADL's. DCP will continue to follow for final PT/OT eval/recommendations for OP therapies/needs. Discharge Planning/Care Management CM Discharge Assessment Start: 06/19/23 13:52 Freq: Status: Active Protocol: Document 06/19/23 13:52 DPL (Rec: 06/19/23 14:00 DPL [id number]) Discharge Planning Assessment Assigned Glass Cutter FERDINAND Acuna Advance Directives? Yes Advance Directives on File No History Provided By Patient,Medical Record Has Patient been admitted in last 30 No days? Prior Living Arrangements House Household Members family Comment grandson Type of transporation used prior to Drives own vehicle admit Independent with ADL's modified independent Is patient alert and oriented? Yes Caregiver for Another No Comment OP pain injections DME Already Rented / Owned Elevated Toilet Seat,FWW / Walker Barriers to Discharge No Discharge Plan Home Transportation Arrangement Grandson Referrals Initiated None needed Whiteboard Updated in Patient Room with Yes name and ext. # of Glass Cutter Review Status In Process Please Provide Date Initial DC 06/19/23 Assessment Was Performed Pre-Anesthesia Assessment Start: 06/11/23 08:52 Freq: Status: Active Protocol: Document 06/11/23 08:53 CAB (Rec: 06/11/23 09:32 CAB [id number]) Pre-Anesthesia Assessment Patient Information Reviewed Via Phone Assessment Assessment Completed With Patient Comment Labs/EKG done 05/18/23 [facility] per pt, not here Primary Care Provider Brennan Luis Comment PCP visit 03/28/23 &clearance form 03/22/23 scanned and in folder Seen Specialist in Last 12 Months Yes Specialist Seen Orthopedist Primary Language French Retail Sales Consultant Required No Height 154.94 cm Weight 61.235 kg Body Mass Index (BMI) 25.4 Hearing Ability Normal Visual Assist Glasses Dentition Type Teeth, Natural Present,Teeth, Missing,Dental Implants Barriers to Learning Visual Hx Anesthesia Reactions No Hx Family Anesthesia Reaction No Hx Malignant Hyperthermia No Hx Blood Transfusions No Anesthesia Review Requested No Asbestos Shingle Roofer No alcohol intake current alcohol intake frequency 0-2 drinks per day Smoking Status Current every day smoker Tobacco type cigarettes Smoking packs per day 0.5 Substance Use Type does not use Pain Present Pain Reported Musculoskeletal Symptoms Abnormal Gait,Back Pain, Difficulty Walking,Radiating Pain into Limb History of Falling (Recent or History of Yes ) Patient is completely paralyzed or No completely immobile Mental Status Oriented to own ability Is patient on oxygen? No Does patient have VILLEGAS/SOB Yes Hx Sleep Apnea No Currently Taking a Beta Joby No Can You Climb a Flight of Stairs Without No SOB Hx Chest Pain No Hx SOB Yes Hx Syncope or Dizziness No Anti-Coagulant Therapy No Has a Web Methods Developer No Cardiac Testing No Hx Pacemaker/ICD No Pacemaker Rep Required? No Cardiac Clearance Received Not Applicable Diet Type At Home Regular Dysphagia No Gastrointestinal Symptoms Constipation Chronic UTI No Urinary Catheter Present No Hx Urinary Self Catheterization No Diabetes No Patient No Lactating No Hx Drug Resistant Organism No Presence of External or Internal Medical Yes: Lumbar, [place]in[place] eye IOLs, Devices right toe, left foot Received a COVID vaccine? Yes Received all doses? Yes Marital Status / Lives With family Current Living Arrangements House Comment Grandson lives with patient Number of Floors (Floors) One Floor Comment Grandson will assist w/care at [place]-lives with patient Does the Patient Have Assistance After Yes Surgery Patient Discharge Plan Description Return Home Comment Pt advised 2-3 day length of stay per surgeon Feels Safe in Current Environment Yes Been Physically Hurt or Threatened By a No Person in Current Environment Do you have thoughts of harming yourself None or others? Are you currently considering suicide? No Do you have a plan to hurt yourself or No Plan others? Do You Have Any Spiritual Beliefs That No May Affect Your HC Choices? Do You Have Any Cultural Practices That No May Affect Your HC Choices? Who Can We Speak to About Patient's Care Family, friends Identifying Code for Release of Patient Declines to issue Information Health Care Proxy/Next of Kin Enrique fuentes) Health Care Proxy Emergency Contact Name Enrique fuentes) Emergency Contact Advance Directives? Yes Advance Directives on File No Requested Patient Bring Advanced Yes Directives DOS Power of First Assistant Manager Yes PAC Instructions Durable medical equipment, Medications to take/avoid, Nasal antibiotic,No ETOH/ petroleum product on skin DOS, NPO,Pre-surgical wash,Sensory aids,Sturdy shoes/comfortable clothes,Do not bring valuables and remove jewelry
[2023-06-19] MEDS: OXYCODONE IR 5 MG TABLET PO (14:55)
[2023-06-19] MEDS: SENNOSIDES 8.6 MG TABLET 17.2 MG PO (21:24)
[2023-06-19] MEDS: MONTELUKAST 10 MG TABLET PO (21:25)
[2023-06-20 00:20] VITALS: BP 110/59; PULSE 104; RESP 17; TEMP 36.8; O2SAT 96
[2023-06-20] MEDS: OXYCODONE IR 5 MG TABLET 10 MG PO ×5 (02:17→21:46)
[2023-06-20] MEDS: HYDROMORPHONE 0.5 MG INJ IV (05:14)
[2023-06-20] MEDS: IPRATROPIUM 0.5 MG/2.5 ML NEB INH ×2 (07:27→19:47)
[2023-06-20 08:00] VITALS: BP 121/46; PULSE 75; RESP 21; TEMP 37.1; O2SAT 93
[2023-06-20] MEDS: DOCUSATE 100 MG CAPSULE PO ×2 (09:58→21:46)
[2023-06-20] MEDS: PSEUDOEPHEDRINE 30 MG TABLET 60 MG PO ×3 (09:58→21:47)
[2023-06-20] MEDS: CYCLOBENZAPRINE 10 MG TABLET PO ×3 (09:59→21:46)
[2023-06-20] MEDS: VIT C/E/ZN/COPPR/LUTEIN/ZEAXAN CAPSULE 1 CAP PO ×2 (10:00→21:46)
[2023-06-20] MEDS: NICOTINE 14 PATCH 14 MG TOP (10:00)
[2023-06-20] MEDS: ACETAMINOPHEN 325 MG TABLET 650 MG PO ×3 (10:03→21:46)
--- NOTE | 2023-06-20 11:15 | PT.IPTN ---
Current Diagnoses Opioid use, unspecified, uncomplicated (06/18/23) Scoliosis, unspecified (06/18/23) Spinal stenosis, lumbar region with neurogenic claudication (06/18/23) Arthrodesis status (06/18/23) Surgery Performed Operation Date: 06/18/23 07:45 Actual Procedures p L3-5 TRANSFORAMINAL LUMBAR INTERBODY FUSION, L2-L3 POSTERIOR SPINAL FUSION, L2-S1 POSTERIOR SEGMENTAL INSTRUMENTATION-Robot - Sal Schroeder MD Physical Therapy Treatment Note M2 PT-IP Current Condition Start: 06/19/23 12:00 Freq: NEEDED Status: Active Protocol: Document 06/19/23 10:15 AB (Rec: 06/19/23 12:10 AB [id number]) Physical Therapy Current Condition Current Condition Evaluation Date 06/19/23 Treatment Diagnosis s/p L2-S1 TLIF; difficulty in walking Onset Date 06/18/23 M3 PT-IP Subjective Start: 06/19/23 12:00 Freq: NEEDED Status: Active Protocol: Document 06/20/23 12:07 TS (Rec: 06/20/23 12:13 TS [id number]) Subjective Physical Therapy Visit Type Type Treatment Note Visit Start Time 11:15 Visit Stop Time 11:25 Notes Grand son not present for caregiver training. Number of FIBER ARTIST Visits 1 Physical Therapy Visit Comments Patient Comments Pt found resting in bed, reports having a bed bath and is having high pain. Therapist asked where grand son was for caregiver training and pt stated she did not know he was supposed to be here. Therapy Pain Assessment Pain When Pain Assessed At Rest Pain Present Pain Present Pain Reported M4 PT-IP Mobility and Gait Start: 06/19/23 12:00 Freq: NEEDED Status: Active Protocol: Document 06/20/23 12:07 TS (Rec: 06/20/23 12:13 TS [id number]) PT-Bed Mobility Assessment Rolling Type of Rolling Log Rolling,Roll to Right Level of Assist Maximal Assistance,1 Person Assistance PT-Transfer Assessment Comments Mobility Comments Pt attempted to perform logroll but could not fully come onto side. pt reports burning pain in L side and calls out. pt was left supine in bed, RN notified. M5 PT-IP Objective Assessments Start: 06/19/23 12:00 Freq: NEEDED Status: Active Protocol: Document 06/19/23 10:15 AB (Rec: 06/19/23 12:10 AB [id number]) Orientation Orientation/Cognition Level of Alertness Alert Orientation Name,Situation Safety Awareness Decreased Safety Awareness Gross Range of Motion Lower Extremity ROM Assessment Within Functional Limits Strength Lower Extremity Strength Assessment Bilaterally Impaired Comments Strength Comments RLE: 3+/5 LLE: 4-/5 Coordination Assessment Gross Coordination Gross Coordination WNL Muscle Tone Muscle Tone WNL Yes M6 PT-IP Treatment Start: 06/19/23 12:00 Freq: NEEDED Status: Active Protocol: Document 06/20/23 12:07 TS (Rec: 06/20/23 12:13 TS [id number]) Physical Therapy Treatment Education Education Provided Precautions,Safety M7 PT-IP Assessment and Plan Start: 06/19/23 12:00 Freq: NEEDED Status: Active Protocol: Document 06/20/23 12:07 TS (Rec: 06/20/23 12:13 TS [id number]) PT Summary Assessment and Plan Potential Rehabilitation Potential Fair Summary Impairments Pain,ROM,Strength,Balance, Coordination,Sensation,Tone, Cognition,Bed Mobility, Transfers,Gait,Activity Tolerance Progress Towards Goals Slow Progress due to Pain,Slow Progress due to Medical Issues,Slow Progress due to Activity Tolerance Assessment Summary Pt reports high pain and could not fuclly come onto side with logroll. PT at this time would recommend SNF rehab vs Home 16/10. Pt's grandson was to attend caregiver training at 11:00am this morning but was not present. Goals Bed Mobility Goal Independent,Standby Assistance Transfer Goal Standby Assistance,Front Wheeled Walker Gait Goal Standby Assistance,Front Wheel Walker Gait Distance 200 Other Goals up/down 2 steps CONSTRUCTION TRADES TEACHER min A Days to Meet Goals 10 Frequency of Treatment Frequency Of Treatment Twice a Day Treatment Plan Physical Therapy Treatment Plan Bed Mobility Training,Transfer Training,Gait Training, Therapeutic Exercise,Balance Retraining,Post Op Education, Discharge Planning,Hot or Cold Pack,Neuromuscular Re-ed, Coordination Retraining,Manual Therapy Precautions Lumbar Precautions Log Roll,No Twisting,Limit Bending,Lifting Restriction of 10 lbs,Gait Belt above Incisional Area Recommendations To Nursing Amount of Assist Needed 2 Person Assist Discharge Recommendations PT Discharge Recommendations Home with 16/10 Assist Available,Home Health,SNF Rehab,Home vs SNF Transportation Needs at Discharge Private Vehicle,Wheelchair/ Cabulance
--- NOTE | 2023-06-20 11:34 | P.PN_ITS ---
Subjective Subjective Date Patient Seen: 06/20/23 Time Patient Seen: 11:00 Interval history: Brissa is POD#2 s/p L3-4, L4-5 Postero-lateral and posterior interbody fusion w/ interbody cage placement + L5-S1 revision hemilaminectomy by Dr. Schroeder. She reports feeling miserable right now, 10/10 pain. Has pain in both her back and legs, denies shooting pains. Her catheter was discontinued today, about 1 hour ago. Has not urinated w/o it yet. She has a h/o 1/2 ppd smoking; ordered a nicotine patch, but says she does not need it. She has a h/o opioid dependence, 60mg oxycodone/day at baseline. Nurse reports patient has been sleeping most of the morning and yesterday and declined PT due to pain. She was hopeful of going home today but now feels she is not ready to be sent home d/t poor pain control. Plans to be d/c to home w/ her grandson when she is ready. Denies fever, chills, chest pain, SOB, nausea, vomiting. Exam Vital Signs (past 8 hours): - 06/20/23 07:30 06/20/23 08:00 Temperature 98.8 F Pulse Rate 75 Respiratory Rate 21 Blood Pressure 121/46 L Pulse Oximetry 93 Oxygen Delivery Method Nasal Cannula Oxygen Flow Rate 1 0 Fraction of Inspired Oxygen 21 SaO2/FiO2 Ratio 428 Oxygen Delivery Method Nasal Cannula Oxygen Flow Rate 0 Narrative Exam Narrative: Lying in bed uncomfortably during our interview today, her eyes are closed for most of the encounter, she appears lethargic but is wincing with pain when asked to move and participate in the physical exam. Resp Effort & Inspection: able to speak in complete sentences Cardio Rate: regular rate Back/Spine/Pelvis Other: Postsurgical dressings are clean, dry, intact over the lumbar spine. Neuro Other: Oriented to person and place but not very alert. Extrem Other: Calves soft and nontender bilaterally, SCDs on and functioning. 5/5 strength DF, PF, EHL. Knee flexion, extension, hip flexion intact. Wiggles all toes equally. Sensation intact throughout bilateral lower extremities. Objective Labs 06/19/23 04:32 REPLACED BY [facility] Medical History (Updated 06/18/23 @ 16:03 by Alexandra Gary PA-C) Chronic, continuous use of opioids Arthritis Spinal stenosis Breast cancer, right (1986) Seasonal allergies Sciatica Surgical History (Updated 06/19/23 @ 07:45 by Alexandra Gary PA-C) History of bunionectomy of right great toe History of breast implant Hx of breast reconstruction (1987) Hx of bilateral mastectomy (1986) Hx of repair of right rotator cuff (2020) Hx of foot surgery Hx of lumbosacral spine surgery () Hx of lumbosacral spine surgery (2019) Hx of vaginal surgery (2015) Hx of tubal ligation Hx of bilateral cataract extraction Social History household members: family Smoking Status: Current every day smoker alcohol intake: current Assessment & Plan Post-op Assessment and plan (1) S/P lumbar fusion: Assessment and Plan narrative: 1) Work w/ PT to improve her mobility. No deep bending, twisting or lifting >10lbs. 2) Continue current pain regimen: oxy 10mg q4hrs scheduled w/ oxy 5mg q3hrs PRN for breakthrough pain. Cyclobenzaprine scheduled and diazepam PRN for muscle spasm. Do not plan to increase patient's pain medication despite her reported 10/10 pain, she likely has poor pain tolerance due to chronic opioid use and she is already very lethargic. 3) Mechanical VTE prophylaxis with SCDs; these should be on and functioning at all times while pt in bed. 4) Pt is hopeful to go home tomorrow w/ Enrique, her grandson. We discussed that at discharge she would receive ONE prescription for oxycodone 5mg (#40), cyclobenzaprine 10mg (#40), and diazepam 5mg (#30) from our providers. She is to continue her Percocet as normally prescribed by her pain management provider. 5) Keep dressing intact, clean and dry until 2 week post-op appointment. No soaking the incision site in pools or tubs. No topical ointments or creams to the incision site. 6) Follow up at [facility] as scheduled in 2 weeks. Postoperative Procedures: Procedures Operation Date: 06/18/23 07:45 Actual Procedure Side Surgeon p L3-5 TRANSFORAMINAL LUMBAR INTERBODY FUSION, L2-L3 POSTERIOR SPINAL FUSION, L2-S1 POSTERIOR SEGMENTAL INSTRUMENTATION-Robot Sal Schroeder MD Postoperative day: 2 Quality VTE Deep Vein Thrombosis/Pulmonary Embolism Present on Admission: No
[2023-06-20 12:00] VITALS: BP 146/57; PULSE 86; RESP 18; TEMP 37.3; O2SAT 91
--- NOTE | 2023-06-20 13:14 | CM.DPC ---
DCP Cont. Reviewed EMR and team rounds for status updates. Per Ortho, pt will remain inpt one more night, d/c home tomorrow with care assistance and transport from her grandson. Will continue to monitor for any further d/c needs/resources.
--- NOTE | 2023-06-20 14:47 | PT-IP ANOTE ---
Pt is not appropriate for PT this afternoon. Per RN pt is having high amounts of pain at this time. PT will check back with pt tomorrow.
--- NOTE | 2023-06-20 14:51 | OT.IPNOTE ---
Pt is not appropriate for OT this afternoon. Per RN pt is having high amounts of pain at this time and has asked that therapy check back on pt tomorrow.
[2023-06-20 16:00] VITALS: BP 145/76; PULSE 89; RESP 16; TEMP 37.4; O2SAT 93
--- NOTE | 2023-06-20 18:12 | PC.NURSE ---
Patient silveira catheter removed at 0800 a.m today and at 1600 patient still had not voided. Bladder scan at 1600 was 287ml. Notified SCOTTIE Bunn and per orders straight cath only for volume of 450cc. OK to call SCOTTIE this evening.
[2023-06-20 19:47] VITALS: PULSE 59; RESP 16; O2SAT 92
[2023-06-20 21:02] VITALS: BP 129/62; PULSE 115; RESP 16; TEMP 36.6; O2SAT 95
[2023-06-20] MEDS: MONTELUKAST 10 MG TABLET PO (21:46)
[2023-06-20] MEDS: SENNOSIDES 8.6 MG TABLET 17.2 MG PO (21:48)
[2023-06-21 00:40] VITALS: BP 135/72; PULSE 105; RESP 17; TEMP 36.8; O2SAT 92
[2023-06-21] MEDS: ONDANSETRON 4 MG/2 ML INJ IV (01:59)
[2023-06-21 06:51] VITALS: BP 141/75; PULSE 107; RESP 16; TEMP 36.4; O2SAT 93
--- NOTE | 2023-06-21 07:20 | PM.DS.1 ---
History of Present Illness History of Present Illness Date Patient Seen: 06/21/23 Time Patient Seen: 06:50 Chief complaint: INPT Narrative: Procedure: 1. L3-4, L4-5 Postero-lateral and posterior interbody fusion 2. L3-4, L4-5 interbody cage placement. 3. L2-3 L5-S1 posterolateral fusion 4. L2-3, L3-4, L4-5 decompressive laminectomy with bilateral facetecomies 5.L2-3 L3-4, L4-5, L5-S1 Posterior segmental instrumentation 6. L5-S1 revision hemilaminectomy and exploration of fusion 7. [place] of bone marrow from iliac crest 8. Utilization of microsurgical technique and operating microscope 9. Utilization of robotic assisted navigation Same procedure as scheduled: Yes Indications: Patient has been having chronic back pain and worsening lumbar radiculopathy. Patient had L5-S1 anterior-posterior spinal fusion with possible pseudoarthrosis from several years ago. Patient has significant mechanical back pain due to her progressively worsening lumbar scoliosis with radiculopathy secondary to her foraminal stenosis. Patient failed multiple conservative management with worsening back pain , leg weakness and numbness in her lower extremity. Patient has been having difficulty performing activity of daily living. After discussing risks benefits of treatment options, patient elected proceed with surgery. Surgeon: Sal Schroeder Behavior Interventionist: Alexandra Gary Anesthesia Type: General Operative Notes Closure Type: primary Specimen(s): none sent Prosthetic devices, grafts, tissues, transplants, or devices: Globus CREO MIS screws, Rise cages Applied: catheter Estimated Blood Loss (mL): 100 Blood products transfused: none Discharge Providers Provider Date of admission: 06/18/23 06:19 Discharge Date: 06/21/23 Primary care physician: Brennan Luis MD Consults: 06/18/23 14:13 Consult to Occupational Therapy Evaluate & Treat Comment: Physician Instructions: Evaluate and treat Consult to Physical Therapy Evaluate & Treat Comment: Physician Instructions: Evaluate and Treat Discharge provider: Tomer Nuñez PA-C Summary Hospital Course Discharge Diagnosis: Status post: 1. L3-4, L4-5 Postero-lateral and posterior interbody fusion 2. L3-4, L4-5 interbody cage placement. 3. L2-3 L5-S1 posterolateral fusion 4. L2-3, L3-4, L4-5 decompressive laminectomy with bilateral facetecomies 5.L2-3 L3-4, L4-5, L5-S1 Posterior segmental instrumentation 6. L5-S1 revision hemilaminectomy and exploration of fusion Hospital Course: Multi-modal pain control. Pain has been difficult to manage due to opiate dependance pre-op. Work with PT and OT Status at Discharge Cognitive/behavioral status at discharge: oriented Functional status at discharge: uses cane/walker Overall status at discharge: patient is progressing back to baseline Time Spent with Patient Time spent: Less than 30 minutes Exam Vital Signs (past 8 hours): - 06/21/23 00:40 06/21/23 06:51 Temperature 98.2 F 97.6 F Pulse Rate 105 H 107 H Respiratory Rate 17 16 Blood Pressure 135/72 141/75 H Pulse Oximetry 92 93 Oxygen Flow Rate 0 0 Fraction of Inspired Oxygen 21 SaO2/FiO2 Ratio 438 Oxygen Delivery Method Room Air Oxygen Flow Rate 0 Narrative Exam Narrative: Patient found lying in bed. She says she has back pain and has difficulty working with PT. She feels she is ready to go home thought. 5/5 quadriceps, hamstrings, DF, PF, EHL bilaterally. Sensation to light touch intact throughout lower extremities bilaterally. Calves soft and compressible without pain or warmth. Objective Labs 06/19/23 04:32 PFSH Medical History (Updated 06/18/23 @ 16:03 by Alexandra Gary PA-C) Chronic, continuous use of opioids Arthritis Spinal stenosis Breast cancer, right (1986) Seasonal allergies Sciatica Surgical History (Updated 06/19/23 @ 07:45 by Alexandra Gary PA-C) History of bunionectomy of right great toe History of breast implant Hx of breast reconstruction (1987) Hx of bilateral mastectomy (1986) Hx of repair of right rotator cuff (2020) Hx of foot surgery Hx of lumbosacral spine surgery (~2015) Hx of lumbosacral spine surgery (2019) Hx of vaginal surgery (2015) Hx of tubal ligation Hx of bilateral cataract extraction Social History household members: family Smoking Status: Current every day smoker alcohol intake: current Discharge Assessment & Plan Assessment and Plan Assessment: Status post lumbar fusion. Plan of Treatment: No deep bending or twisting at the waist. No lifting more than 10 pounds. Discharge home with family. It was discussed that at discharge she would receive ONE prescription for oxycodone 5mg (#40), cyclobenzaprine 10mg (#40), and diazepam 5mg (#30) from our providers. She may continue her Percocet as normally prescribed by her pain management provider. Follow up with [facility] in 2 weeks for wound check. Discharge Plan Discharge Plan Patient Disposition: Home Provider Discharge Comment: DC pending PT approval Discharge orders & Medications Prescriptions: New cyclobenzaprine 10 mg Tablet 10 mg PO TID PRN (Reason: Spasms) Qty: 40 0RF ondansetron 4 mg Tablet,Disintegrating 4 mg sublingual Q8HR Qty: 10 0RF diazepam 5 mg Tablet 5 mg PO Q6HR PRN (Reason: Anxiety) Qty: 30 0RF oxycodone 5 mg Tablet 5 mg PO Q4H PRN (Reason: Pain, Moderate (4-6)) Qty: 40 0RF Continued oxycodone-acetaminophen [Percocet] 10-325 mg Tablet 1 tab PO 6XD montelukast 10 mg Tablet 10 mg PO BEDTIME albuterol sulfate 90 mcg/actuation Hfa Aerosol Inhaler 2 puff INHALATION Q4-6H PRN (Reason: Shortness Of Breath) pseudoephedrine HCl 60 mg Tablet 60 mg PO TID Rx Instructions: DNExceed 4 doses/24h Prempro 0.625-2.5 mg Tablet 1 tab PO DAILY PreserVision AREDS-2 250-90-40-1 mg Capsule 1 tab PO BID Spiriva Respimat 1.25 mcg/actuation Mist 2 puff INHALATION DAILY Discontinued cyclobenzaprine [Flexeril] 10 mg Tablet 10 mg PO BEDTIME ibuprofen 800 mg Tablet 800 mg PO TID Follow up/Referrals: Brennan Luis MD [Primary Care Provider] - Sal Schroeder MD [Physician] - 07/03/23 1:20 pm (Follow up at [facility] office in [place].) Diet/Activity/Treatments Diet: Diet as Tolerated Activity: No deep bending or twisting at the waist. No lifting more than 10 pounds. Cold/Heat Therapy: Heating pad to low back as needed for pain. Skin/Wound/Dressing Care Report to your healthcare provider any signs of infection, such as:: chills, fever, night sweats, unusual drainage and unusual redness Dressing: May shower. Keep dressing as dry as possible. If dressing becomes wet or dirty, may remove and replace with clean, dry gauze. No bathing or otherwise soaking incisions. Do not apply any creams, lotions, or ointments to incisions. Visit Report/Discharge Packet Instructions: DI for Transforaminal Lumbar Interbody Fusion Stand Alone Forms: Patient Portal/API, Stroke Signs & Symptoms, Surgery Discharge Discharge Data Primary Care Provider: Brennan Luis VTE Deep Vein Thrombosis/Pulmonary Embolism Present on Admission: No
[2023-06-21 07:32] VITALS: PULSE 63; RESP 18; O2SAT 95
[2023-06-21] MEDS: IPRATROPIUM 0.5 MG/2.5 ML NEB INH ×2 (07:32→10:54)
[2023-06-21 08:00] VITALS: BP 139/80; PULSE 104; RESP 18; TEMP 36.8; O2SAT 94
[2023-06-21] MEDS: OXYCODONE IR 5 MG TABLET 10 MG PO ×2 (08:30→12:50)
[2023-06-21] MEDS: polyethylene glycoL 3350 17 GM POWD.PACK PO (08:32)
[2023-06-21] MEDS: PSEUDOEPHEDRINE 30 MG TABLET 60 MG PO (08:41)
[2023-06-21] MEDS: DOCUSATE 100 MG CAPSULE PO (08:41)
[2023-06-21] MEDS: VIT C/E/ZN/COPPR/LUTEIN/ZEAXAN CAPSULE 1 CAP PO (08:47)
[2023-06-21] MEDS: CALCIUM CARBONATE 500 MG TAB PO (10:21)
[2023-06-21 10:54] VITALS: PULSE 103; RESP 18; O2SAT 96
--- NOTE | 2023-06-21 11:26 | PT.IPTN ---
Current Diagnoses Opioid use, unspecified, uncomplicated (06/18/23) Scoliosis, unspecified (06/18/23) Spinal stenosis, lumbar region with neurogenic claudication (06/18/23) Arthrodesis status (06/18/23) Surgery Performed Operation Date: 06/18/23 07:45 Actual Procedures p L3-5 TRANSFORAMINAL LUMBAR INTERBODY FUSION, L2-L3 POSTERIOR SPINAL FUSION, L2-S1 POSTERIOR SEGMENTAL INSTRUMENTATION-Robot - Sal Schroeder MD Physical Therapy Treatment Note M2 PT-IP Current Condition Start: 06/19/23 12:00 Freq: NEEDED Status: Active Protocol: Document 06/19/23 10:15 AB (Rec: 06/19/23 12:10 AB [id number]) Physical Therapy Current Condition Current Condition Evaluation Date 06/19/23 Treatment Diagnosis s/p L2-S1 TLIF; difficulty in walking Onset Date 06/18/23 M3 PT-IP Subjective Start: 06/19/23 12:00 Freq: NEEDED Status: Active Protocol: Document 06/21/23 12:14 TS (Rec: 06/21/23 12:26 TS [id number]) Subjective Physical Therapy Visit Type Type Treatment Note Visit Start Time 11:26 Visit Stop Time 12:04 Number of CUT ROLL MACHINE OFFBEARER Visits 2 Physical Therapy Visit Comments Patient Comments Pt found resting in bed, reports her pain is better today and is more alert. Had pt call grandson for caregiver training at 14:00 this afternoon. Therapy Pain Assessment Pain When Pain Assessed At Rest Pain Present Pain Present Pain Reported M4 PT-IP Mobility and Gait Start: 06/19/23 12:00 Freq: NEEDED Status: Active Protocol: Document 06/21/23 12:14 TS (Rec: 06/21/23 12:26 TS [id number]) PT-Bed Mobility Assessment Rolling Type of Rolling Log Rolling,Roll to Right Level of Assist Minimal Assistance,1 Person Assistance Supine to Sit Supine to Sit Maximum Assistance,1 Person Assistance Sit to Supine Sit to Supine Moderate Assistance,Total Assistance Scooting Scooting to Edge of Bed Minimal Assistance PT-Transfer Assessment Sit to and From Stand Sit to and from Stand Standby Assistance Equipment Transfer Assistive Device Gait Belt,Front Wheeled Walker Orthotic/Prosthetic Devices or Brace: No Comments Mobility Comments Pt recalled 1/3 spinal precautions(no twisting). Logroll to R side Mahad with Max cues for sequencing. Supine to sit MaxA x1 with cues for BUE support for uprighting trunk. She has some difficulty scooting to EOB due to height of bed required Mahad. STS x1 SBA with FWW, pt braces back of LE's against bed to assist with balance. She ambulated in room ~50'SBA with FWW. She maintained standing balance at sink for brushing of teeth and at times with no support. Sit to supine into bed ModA with Max cues for sequencing. Pt was left in bed, all needs met. Gait Assessment Gait Gait Assistance Required: Standby Assistance Distance (Feet) 50 Assistive Devices Assistive Device Gait Belt,Front Wheeled Walker Gait Deviations General Gait Pattern Ataxic,Decreased Stride Length ,Decreased Feet Clearance,Step -to Gait Factors Limiting Gait Function Factors Limiting Gait Function Decreased Activity Tolerance, Decreased Strength,Difficulty Following Directions,Limited Range of Motion,Pain,Poor Balance,Poor Safety Awareness Comments Gait Comments See mobility comments PT-Balance Assessment Sitting Balance and Reactions Static Sitting Balance Ability Good Dynamic Sitting Balance Ability Fair Standing Balance and Reactions Static Standing Balance Ability Good Dynamic Standing Balance Ability Fair M5 PT-IP Objective Assessments Start: 06/19/23 12:00 Freq: NEEDED Status: Active Protocol: Document 06/19/23 10:15 AB (Rec: 06/19/23 12:10 AB [id number]) Orientation Orientation/Cognition Level of Alertness Alert Orientation Name,Situation Safety Awareness Decreased Safety Awareness Gross Range of Motion Lower Extremity ROM Assessment Within Functional Limits Strength Lower Extremity Strength Assessment Bilaterally Impaired Comments Strength Comments RLE: 3+/5 LLE: 4-/5 Coordination Assessment Gross Coordination Gross Coordination WNL Muscle Tone Muscle Tone WNL Yes M6 PT-IP Treatment Start: 06/19/23 12:00 Freq: NEEDED Status: Active Protocol: Document 06/21/23 12:14 TS (Rec: 06/21/23 12:26 TS [id number]) Physical Therapy Treatment Education Education Provided Precautions,Safety M7 PT-IP Assessment and Plan Start: 06/19/23 12:00 Freq: NEEDED Status: Active Protocol: Document 06/21/23 12:14 TS (Rec: 06/21/23 12:26 TS [id number]) PT Summary Assessment and Plan Potential Rehabilitation Potential Fair Summary Impairments Pain,ROM,Strength,Balance, Coordination,Sensation,Tone, Cognition,Bed Mobility, Transfers,Gait,Activity Tolerance Progress Towards Goals Progressing Toward Goals Assessment Summary Brissa is making progress with her mobility this session. She requires Mahad for logroll and MaxA for supine to sit with max cues for sequencing. She is SBA for STS and for gait with FWW ~50' She has good stnading balance and at times does not need FWW for support. PT asked pt's grandson to come in at 14:00 for some caregiver training due to her difficulty getting out of bed and for stair training. PT is recommending home 24/ with assist at this time. Goals Bed Mobility Goal Independent,Standby Assistance Transfer Goal Standby Assistance,Front Wheeled Walker Gait Goal Standby Assistance,Front Wheel Walker Gait Distance 200 Other Goals up/down 2 steps OPERATIONS AND MAINTENANCE SPECIALIST min A Days to Meet Goals 10 Frequency of Treatment Frequency Of Treatment Twice a Day Treatment Plan Physical Therapy Treatment Plan Bed Mobility Training,Transfer Training,Gait Training, Therapeutic Exercise,Balance Retraining,Post Op Education, Discharge Planning,Hot or Cold Pack,Neuromuscular Re-ed, Coordination Retraining,Manual Therapy Precautions Lumbar Precautions Log Roll,No Twisting,Limit Bending,Lifting Restriction of 10 lbs,Gait Belt above Incisional Area Recommendations To Nursing Amount of Assist Needed 1 Person Assist Discharge Recommendations PT Discharge Recommendations Home with 24/7 Assist Available,Home Health Transportation Needs at Discharge Private Vehicle
--- NOTE | 2023-06-21 11:34 | CM.DPC ---
DCP Cont. Reviewed EMR and team rounds for status updates. Pt has improved and is now medically cleared for d/c. Her grandson will provide for her care assistance and will also transport her back home by early afternoon today. No further DCP needs indicated at this time.
--- NOTE | 2023-06-21 14:00 | PT.IPTN ---
Current Diagnoses Opioid use, unspecified, uncomplicated (06/18/23) Scoliosis, unspecified (06/18/23) Spinal stenosis, lumbar region with neurogenic claudication (06/18/23) Arthrodesis status (06/18/23) Surgery Performed Operation Date: 06/18/23 07:45 Actual Procedures p L3-5 TRANSFORAMINAL LUMBAR INTERBODY FUSION, L2-L3 POSTERIOR SPINAL FUSION, L2-S1 POSTERIOR SEGMENTAL INSTRUMENTATION-Robot - Sal Schroeder MD Physical Therapy Treatment Note M2 PT-IP Current Condition Start: 06/19/23 12:00 Freq: NEEDED Status: Active Protocol: Document 06/19/23 10:15 AB (Rec: 06/19/23 12:10 AB [id number]) Physical Therapy Current Condition Current Condition Evaluation Date 06/19/23 Treatment Diagnosis s/p L2-S1 TLIF; difficulty in walking Onset Date 06/18/23 M3 PT-IP Subjective Start: 06/19/23 12:00 Freq: NEEDED Status: Active Protocol: Document 06/21/23 14:54 TS (Rec: 06/21/23 15:03 TS [id number]) Subjective Physical Therapy Visit Type Type Treatment Note Visit Start Time 14:00 Visit Stop Time 14:19 Number of EXHIBITIONS AND COLLECTIONS MANAGER Visits 3 Physical Therapy Visit Comments Patient Comments Pt found resting in chair, dressed and grandson in room. Pt reports trying to get back to bed earlier with nursing but had a spike in pain and stayed in chair. Pt is agreeable to PT. M4 PT-IP Mobility and Gait Start: 06/19/23 12:00 Freq: NEEDED Status: Active Protocol: Document 06/21/23 14:54 TS (Rec: 06/21/23 15:03 TS [id number]) PT-Transfer Assessment Sit to and From Stand Sit to and from Stand Minimal Assistance Equipment Transfer Assistive Device Gait Belt,Front Wheeled Walker Orthotic/Prosthetic Devices or Brace: No Comments Mobility Comments STS from chair Mahad for balance with FWW. She ambulated CGA from grandson ~ 30' in room and use of FWW with slow step to gait. She performed steps x1 with grandson and TRACKMOBILE OPERATOR Mahad. When descending step pt had an increase in pain and did not want to continue with stairs. Asked pt if she would complete bed mobility to train her grandson and she requested not to. Pt was left in chair, all needs met, preparing for d/c. Gait Assessment Gait Gait Assistance Required: Contact Guard Assist Distance (Feet) 30 Able to Maintain Weight Bearing Status Yes During Gait Assistive Devices Assistive Device Gait Belt,Front Wheeled Walker Orthotic/Prosthetic Devices or Brace: No Gait Deviations General Gait Pattern Ataxic,Decreased Stride Length ,Decreased Feet Clearance,Step -to Gait Factors Limiting Gait Function Factors Limiting Gait Function Decreased Activity Tolerance, Decreased Strength,Difficulty Following Directions,Limited Range of Motion,Pain,Poor Balance,Poor Safety Awareness Comments Gait Comments See mobility comments Stair Climbing Assessment Evaluation Level of Assist On Stairs Minimal Assistance,1 Person Assistance Devices Stair Climbing Assistive Devices Left Railing Technique/Endurance Stair Climbing Direction Ascend and Descend Stair Climbing Technique Step to Step Number of Steps Climbed 1 Comments Stair Climbing Comments Stair training with trini. See mobility comments PT-Balance Assessment Sitting Balance and Reactions Static Sitting Balance Ability Good Dynamic Sitting Balance Ability Fair Standing Balance and Reactions Static Standing Balance Ability Fair Dynamic Standing Balance Ability Fair Device Used FWW M5 PT-IP Objective Assessments Start: 06/19/23 12:00 Freq: NEEDED Status: Active Protocol: Document 06/19/23 10:15 AB (Rec: 06/19/23 12:10 AB [id number]) Orientation Orientation/Cognition Level of Alertness Alert Orientation Name,Situation Safety Awareness Decreased Safety Awareness Gross Range of Motion Lower Extremity ROM Assessment Within Functional Limits Strength Lower Extremity Strength Assessment Bilaterally Impaired Comments Strength Comments RLE: 3+/5 LLE: 4-/5 Coordination Assessment Gross Coordination Gross Coordination WNL Muscle Tone Muscle Tone WNL Yes M6 PT-IP Treatment Start: 06/19/23 12:00 Freq: NEEDED Status: Active Protocol: Document 06/21/23 14:54 TS (Rec: 06/21/23 15:03 [id number]) Physical Therapy Treatment Education Education Provided Precautions,Safety M7 PT-IP Assessment and Plan Start: 06/19/23 12:00 Freq: NEEDED Status: Active Protocol: Document 06/21/23 14:54 TS (Rec: 06/21/23 15:03 [id number]) PT Summary Assessment and Plan Potential Rehabilitation Potential Fair Summary Impairments Pain,ROM,Strength,Balance, Coordination,Sensation,Tone, Cognition,Bed Mobility, Transfers,Gait,Activity Tolerance Progress Towards Goals Progressing Toward Goals Assessment Summary Brissa made some progress with her mobility, pain continues to be a limiting factor. She performed STS with Mahad and use of FWW. She ambulated in room with rocky CGA and use of FWW with slow step to gait . She performed step x1 on platform step with Mahad from trini. She requested not to perform bed mobility due to pain. Trini did recall proper sequencing for bed mobility. PT is recommending Home with 16/10. Pt could benefit from HHPT. Goals Bed Mobility Goal Independent,Standby Assistance Transfer Goal Standby Assistance,Front Wheeled Walker Gait Goal Standby Assistance,Front Wheel Walker Gait Distance 200 Other Goals up/down 2 steps TRACKMOBILE OPERATOR min A Days to Meet Goals 10 Frequency of Treatment Frequency Of Treatment Twice a Day Treatment Plan Physical Therapy Treatment Plan Bed Mobility Training,Transfer Training,Gait Training, Therapeutic Exercise,Balance Retraining,Post Op Education, Discharge Planning,Hot or Cold Pack,Neuromuscular Re-ed, Coordination Retraining,Manual Therapy Precautions Lumbar Precautions Log Roll,No Twisting,Limit Bending,Lifting Restriction of 10 lbs,Gait Belt above Incisional Area Recommendations To Nursing Amount of Assist Needed 1 Person Assist Discharge Recommendations PT Discharge Recommendations Home with 16/10 Assist Available,Home Health Transportation Needs at Discharge Private Vehicle
--- NOTE | 2023-06-21 17:50 | PC.NURSE ---
Patient is more alert today and less lethargic. Per caustic cresylate shift superintendent RN she was up to BSC multiple times to void and able to walk with FWW x1 assist. She is able to participate with PT today and ambulate around the room and get to the bathroom. She reports pain level is more tolerable today. She is cleared for discharge home with her grandson after caregiver training this afternoon at 2 pm. She verbalizes understanding of medications, site care, s/sx of infection, activity limitations as well as her post op appointment in 10-14 days with MD Schroeder's office. Patient is escorted via w/ch by RN with all of her belongings including home medications from pharmacy, for discharge home in private vehicle with her grandson at 1430 this afternoon.
== END 2023-06-21 14:30 | disposition home or self-care (01) | DRG 454 ==
PROVIDERS: Admitting Provider Orthopaedic Surgery Orthopaedic Surgery of the Spine; PCP Family Medicine; Referring Provider Orthopaedic Surgery Orthopaedic Surgery of the Spine; Visit Provider Orthopaedic Surgery Orthopaedic Surgery of the Spine
PROC: 0SG10AJ Fusion of 2 or more Lumbar Vertebral Joints with Interbody Fusion Device, Posterior Approach, Anterior Column, Open Approach (ICD-10-PCS; principal; 2023-06-18 07:45)
DX: M43.16 Spondylolisthesis, lumbar region (principal); M96.0 Pseudarthrosis after fusion or arthrodesis; T84.038A Mechanical loosening of other internal prosthetic joint, initial encounter; M51.16 Intervertebral disc disorders with radiculopathy, lumbar region; M48.061 Spinal stenosis, lumbar region without neurogenic claudication; M41.26 Other idiopathic scoliosis, lumbar region; M96.1 Postlaminectomy syndrome, not elsewhere classified; G89.18 Other acute postprocedural pain; J44.9 Chronic obstructive pulmonary disease, unspecified; F17.210 Nicotine dependence, cigarettes, uncomplicated; Z98.1 Arthrodesis status
CPT/HCPCS: 36415; 72100; 72131; 76000; 85014; 85018; 94640; 97116; 97162; 97166; 97530; 97535; 99406; C1776; C1713; C1821; C9290; J0136; J0171; J0330; J0690; J1100; J1170; J1885; J2250; J2405; J2704; J3010; J3410

== ENCOUNTER 2024-01-25 19:00 | Emergency (ER) | payer MEDICARE, OTHER, SELFPAY ==
[2023-06-18 14:33] VITALS: BMI 25.4
[2024-01-25] VITALS (10 sets, daily range): BP systolic 147–187; BP diastolic 76–111; PULSE 95–101; RESP 15–36; TEMP 37.2; O2SAT 93–98; BMI 24.4
--- NOTE | 2024-01-25 19:13 | ED.ABDPAIN ---
HPI - Abdominal Pain General Chief Complaint: Abdominal Pain Stated Complaint: extreme px right side hx back surgery Time Seen by Provider: 01/25/24 19:08 History of Present Illness HPI narrative: 73-year-old female with new complaint right-sided abdominal pain, history of chronic back pain, taking opiates for chronic back pain, most recent back surgery [address] [facility], one of her back surgeries was via anterior abdominal approach, otherwise she denies any prior abdominopelvic surgeries, has had prior colonoscopy with biopsy but not recent, no known diverticulosis or cancers or polyps, no prior bowel obstructions. She has not had regular bowel movement for at least a week, has occasional small amounts. No black or red color to stools. No mucoid appearance to stools. No fevers or chills. She denies pain on urination, denies urinary frequency. No flank pain area discomfort. No cough shortness of breath, denies chest pain. No injury, fall, trauma, new activities. She is taking your chronic opiate pain medication, also takes [id number] MiraLax regimen to help prevent constipation. Related Data Home Medications Medication Instructions Recorded Confirmed albuterol sulfate 90 mcg/actuation 2 puff inhalation Q4-6H PRN 06/11/23 06/18/23 aerosol inhaler Shortness Of Breath conj estrogen-medroxyprogesterone 1 tab PO DAILY 06/11/23 06/18/23 0.625 mg-2.5 mg tablet (Prempro) montelukast 10 mg tablet 10 mg PO BEDTIME 06/11/23 06/18/23 oxycodone-acetaminophen 10 mg-325 1 tab PO 6XD 06/11/23 06/18/23 mg tablet (Percocet) pseudoephedrine HCl 60 mg tablet 60 mg PO TID 06/11/23 06/18/23 tiotropium bromide 1.25 2 puff inhalation DAILY 06/11/23 06/18/23 mcg/actuation mist for inhalation (Spiriva Respimat) vit C 250 mg-vit E 90 mg-zinc 40 1 tab PO BID 06/11/23 06/18/23 mg-copper 1 [id number] capsule (PreserVision AREDS-2) Previous Rx's Medication Instructions Recorded cyclobenzaprine 10 mg tablet 10 mg PO TID PRN Spasms #40 tabs 06/21/23 diazepam 5 mg tablet 5 mg PO Q6HR PRN Anxiety #30 tabs 06/21/23 ondansetron 4 mg disintegrating 4 mg sublingual Q8HR #10 tabs 06/21/23 tablet oxycodone 5 mg tablet 5 mg PO Q4H PRN Pain, Moderate 06/21/23 (4-6) #40 tabs lactulose 20 gram/30 mL oral 20 g (30 mL) PO BID #600 mL 01/25/24 solution Allergies Allergy/AdvReac Type Severity Reaction Status Date / Time latex Allergy Mild Rash Verified 06/18/23 06:55 Review of Systems Review of Systems Narrative: see HPI Patient History Medical History (Updated 01/25/24 @ 22:10 by Tomer Bunch MD) Chronic, continuous use of opioids Arthritis Spinal stenosis Breast cancer, right (1986) Seasonal allergies Sciatica Surgical History (Updated 06/19/23 @ 07:45 by Alexandra Gary PA-C) History of bunionectomy of right great toe History of breast implant Hx of breast reconstruction (1987) Hx of bilateral mastectomy (1986) Hx of repair of right rotator cuff (2020) Hx of foot surgery Hx of lumbosacral spine surgery () Hx of lumbosacral spine surgery (2019) Hx of vaginal surgery (2015) Hx of tubal ligation Hx of bilateral cataract extraction Social History household members: family Smoking Status: Current every day smoker alcohol intake: current Smoking Status: Current every day smoker alcohol intake frequency: 0-2 drinks per day Substance Use Type: does not use Exam Narrative Exam Narrative: GENERAL: Well-developed patient, in moderate abdominal distress. HEAD: Atraumatic. Normocephalic. EYES: Pupils equal round and reactive. Extraocular motions intact. No scleral icterus. No injection or drainage. ENT: Nose without bleeding, purulent drainage. Throat without erythema, tonsillar hypertrophy or exudate. Airway patent. NECK: Trachea midline. Non tender CARDIOVASCULAR: Regular rate and rhythm without murmurs, gallops, or rubs. RESPIRATORY: Clear to auscultation. Breath sounds equal bilaterally. No wheezes, rales, or rhonchi. GASTROINTESTINAL: Abdomen nondistended, no obvious ventral/incisional hernia, some tenderness right lower quadrant, without guarding or rebound tenderness. Bowel tones present, unremarkable, no rushes or tinkles quality EXTREMITIES: No edema or joint tenderness. BACK: Well-healed midline low lumbar scar, and mid lumbar vertical paraspinal scars, all well healed, no redness or swelling. No midline lumbar or thoracic tenderness, no paraspinal muscular tenderness. No CVA region discomfort on percussion either side. NEURO: AOx3. Motor functions grossly nonfocal SKIN: No rash or erythema of visible areas Initial Vital Signs Initial Vital Signs: Vital Signs Pulse Rate 101 H 01/25/24 19:09 Blood Pressure 187/106 H 01/25/24 19:09 Pulse Oximetry 98 01/25/24 19:09 Course Orders Ordered: ED Orders 01/25/24 19:22 Complete Blood Count AUTO DIFF Stat Comprehensive Metabolic Panel Stat Lipase Stat 01/25/24 19:46 CT abdomen pelvis w con Stat Discontinued Medications Dicyclomine HCl (Dicyclomine 10 Mg Capsule) 20 mg PO NOW ONE Stop: 01/25/24 22:06 Last Admin: 01/25/24 22:09 Dose: 20 mg Documented By: XU Hydromorphone HCl (Hydromorphone 1 Mg Inj) 0.5 mg IV NOW ONE Stop: 01/25/24 20:30 Last Admin: 01/25/24 20:34 Dose: 0.5 mg Documented By: XU Sodium Chloride (Normal Saline 0.9%) 1,000 mls @ 1,000 mls/hr IV BOLUS ONE Stop: 01/25/24 20:46 Last Infusion: 01/25/24 21:14 Dose: Infused Documented By: Admin: 01/25/24 20:14 Dose: 1,000 mls/hr Documented By: XU Lactulose (Lactulose 20 Gm/30 Ml Solution) 20 gm PO NOW ONE Stop: 01/25/24 22:06 Last Admin: 01/25/24 22:08 Dose: 20 gm Documented By: XU Morphine Sulfate (Morphine 4 Mg/Ml Inj) 4 mg IV NOW ONE Stop: 01/25/24 19:23 Last Admin: 01/25/24 19:34 Dose: 4 mg Documented By: XU Ondansetron HCl (Ondansetron 4 Mg/2 Ml Inj) 4 mg IV NOW ONE Stop: 01/25/24 19:23 Last Admin: 01/25/24 19:33 Dose: 4 mg Documented By: XU Vital Signs Vital signs: Vital Signs - 8 hr 01/25/24 19:09 01/25/24 19:09 01/25/24 19:11 Temperature 98.9 F Pulse Rate 101 H 101 H Respiratory Rate 22 Blood Pressure 187/106 H 187/106 H Pulse Oximetry 98 98 Oxygen Delivery Method Room Air 01/25/24 19:30 01/25/24 19:30 01/25/24 20:14 Temperature Pulse Rate 95 H 95 H Respiratory Rate Blood Pressure 178/83 H Pulse Oximetry 95 93 Oxygen Delivery Method 01/25/24 20:30 01/25/24 20:30 01/25/24 21:00 Temperature Pulse Rate 97 H 99 H Respiratory Rate 25 H Blood Pressure 174/84 H Pulse Oximetry 94 93 Oxygen Delivery Method Room Air 01/25/24 21:01 01/25/24 21:01 01/25/24 21:30 Temperature Pulse Rate 98 H 96 H Respiratory Rate 36 H Blood Pressure 172/87 H Pulse Oximetry 95 Oxygen Delivery Method 01/25/24 21:31 01/25/24 21:31 01/25/24 22:00 Temperature Pulse Rate 96 H 96 H Respiratory Rate 15 27 H Blood Pressure 157/76 H Pulse Oximetry 96 95 Oxygen Delivery Method 01/25/24 22:00 Temperature Pulse Rate Respiratory Rate Blood Pressure 147/111 H Pulse Oximetry Oxygen Delivery Method MDM - Abdominal Pain Lab Data Attestation: I reviewed the patient's lab results. Lab results narrative: White blood cell count 92108, hemoglobin 13, platelets adequate. Basic metabolic panel unremarkable, liver functions and lipase normal. Urine dip negative. 01/25/24 19:22 01/25/24 19:22 Labs: Lab Results 01/25/24 Range/Units 19:22 WBC 14.8 H (4.5-11.0) X10^3/uL RBC 4.06 (4.0-5.2) X10^6/uL Hgb 13.0 (12.0-16.0) g/dL Hct 38.5 (36-46) % MCV 94.9 (80-100) fL MCH 32.1 (26-34) PG MCHC 33.8 (30-36) % RDW 13.4 (11.6-14.8) % Plt Count 266 (150-400) X10^3/uL Neut % (Auto) 80.3 H (50-75) % Lymph % (Auto) 9.2 L (25-40) % Dickey % (Auto) 8.6 (3-14) % Eos % (Auto) 1.0 L (2-4) % Baso % (Auto) 0.9 (0-2) % Neut # (Auto) 71085 H (1994-5366) /uL Lymph # (Auto) 1400 (6408-8802) /uL Dickey # (Auto) 1300 H (0-900) /uL Eos # (Auto) 200 (0-450) /uL Baso # (Auto) 100 (0-100) /uL Sodium 136 L (137-145) mmol/L Potassium 3.8 (3.4-5.1) mmol/L Chloride 102 (98-107) mmol/L Carbon Dioxide 24 (22-32) mmol/L BUN 17 (7-17) mg/dL Creatinine 0.57 (0.52-1.04) mg/dL Estimated GFR > 60 (>60) mL/min BUN/Creatinine Ratio 29.8 H (6-22) Glucose 92 (80-110) mg/dL Calcium 9.8 (8.4-10.2) mg/dL Total Bilirubin 0.5 (0.2-1.3) mg/dL AST 31 (14-36) IU/L ALT 20 (<35) IU/L Alkaline Phosphatase 82 (38-126) U/L Total Protein 8.2 (6.3-8.2) g/dL Albumin 4.7 (3.5-5.0) g/dL Globulin 3.5 (1.7-4.1) g/dL Albumin/Globulin Ratio 1.3 (1.0-2.8) Lipase 115 (23-300) U/L Point of care testing: Urine Dip Bedside Urine Glucose Negative Bedside Urine Bilirubin - Negative Bedside Urine Ketone - Negative Urine Specific [place] 1.005 Bedside Urine Occult Blood - Negative Bedside Urine pH 6.0 Bedside Urine Protein - Negative Bedside Urine Urobilinogen - Negative Bedside Urine Nitrite - Negative Bedside Urine Leukocytes - Negative Esterase MDM Narrative Medical decision making narrative: 73-year-old female with chronic back pain, chronic opiate use, decreased bowel movements last few days, despite use of MiraLax laxative. On exam has some tenderness right lower quadrant. No abdominopelvic organs surgery, though she has had anterior approach lumbar fusion surgery. Afebrile, sirs screen negative. White blood cell count [address] abdomen and pelvis IV contrast imaging ordered. Requests pain medications, IV morphine/Zofran. Keep NPO. 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 CT abdomen and pelvis showed enteritis changes with small bowel fluid noted, no obstruction, no abscess, no perforation. Also colonic stool burden noted, consistent with constipation. See radiology report. Crampiness ongoing, oral dicyclomine dose in emergency department, none for discharge if might contribute constipation. Continue chronic pain medications. Oral lactulose, prescription sent for further doses to use if needed. Recheck advised if still symptomatic through this weekend. Return precautions discussed. Home with family. Discharge Plan Departure Patient Disposition: Home Clinical Impression: Constipation, Chronic, continuous use of opioids, Enteritis, Abdominal pain Instructions: DI for Abdominal Pain-Adult, DI for Constipation Activity Restrictions/Additional Instructions: Crampy abdominal pain, chronic opiate use, discomfort despite use of MiraLax laxative. Mild increased white blood cell, no fever, some tenderness right lower quadrant. CT scan abdomen and pelvis showed some small fluid-filled loops, no bowel obstruction changes, possible enteritis, also colonic stool constipation changes in the colon. No abscess or perforation or obstruction changes described. Trial of lactulose laxative, 1st dose given in the emergency department, prescription sent to your pharmacy. Oral dose of Bentyl/dicyclomine antispasmodics given in the emergency department, perhaps could be helpful for cramping sensation control, however no prescription of this medication for discharge since theoretically this might contribute to more constipation problems. Drink plenty of fluids. Take lactulose prescription as directed. Recheck symptoms with your regular doctor on Sunday if you are still having problems. Return to this/nearest emergency department for any change worsening symptoms or any concerns prior Prescriptions: New lactulose 20 gram/30 mL solution 20 g PO BID Qty: 600 0RF No Action oxycodone-acetaminophen [Percocet] 10-325 mg Tablet 1 tab PO 6XD montelukast 10 mg Tablet 10 mg PO BEDTIME albuterol sulfate 90 mcg/actuation Hfa Aerosol Inhaler 2 puff INHALATION Q4-6H PRN (Reason: Shortness Of Breath) pseudoephedrine HCl 60 mg Tablet 60 mg PO TID Rx Instructions: DNExceed 4 doses/24h Prempro 0.625-2.5 mg Tablet 1 tab PO DAILY PreserVision AREDS-2 250-90-40-1 mg Capsule 1 tab PO BID Spiriva Respimat 1.25 mcg/actuation Mist 2 puff INHALATION DAILY cyclobenzaprine 10 mg Tablet 10 mg PO TID PRN (Reason: Spasms) Qty: 40 0RF ondansetron 4 mg Tablet,Disintegrating 4 mg sublingual Q8HR Qty: 10 0RF diazepam 5 mg Tablet 5 mg PO Q6HR PRN (Reason: Anxiety) Qty: 30 0RF oxycodone 5 mg Tablet 5 mg PO Q4H PRN (Reason: Pain, Moderate (4-6)) Qty: 40 0RF Referrals: Brennan Luis MD [Primary Care Provider] - Stand Alone Forms: Patient Portal/API/Survey
[2024-01-25 19:30] LABS: Add Manual Diff / Slide Review NO; Basophils Absolute Auto 100 /uL (0-100); Basophils Percent Auto 0.9 % (0-2); Eosinophils Absolute Auto 200 /uL (0-450); Hematocrit 38.5 % (36-46); Lymphocytes Absolute Auto 1400 /uL (1100-4500); Lymphocytes Percent Auto 9.2 % (25-40); Mean Corpuscular HGB Conc 33.8 % (30-36); Mean Corpuscular Hemoglobin 32.1 PG (26-34); Mean Corpuscular Volume 94.9 fL (80-100); Monocytes Absolute Auto 1300 /uL (0-900); Monocytes Percent Auto 8.6 % (3-14); Neutrophils Absolute Auto 11900 /uL (1500-7000); Neutrophils Percent Auto 80.3 % (50-75); Platelet Count 266 X10^3/uL (150-400); Red Blood Cell Count 4.06 X10^6/uL (4.0-5.2); Red Cell Distribution Width 13.4 % (11.6-14.8); White Blood Cell Count 14.8 X10^3/uL (4.5-11.0)
[2024-01-25] MEDS: ONDANSETRON 4 MG/2 ML INJ IV (19:33)
[2024-01-25] MEDS: MORPHINE 4 MG/ML INJ IV (19:34)
[2024-01-25 19:41] LABS: Alanine Aminotransferase 20 IU/L (<35); Albumin 4.7 g/dL (3.5-5.0); Albumin Globulin Ratio 1.3 (1.0-2.8); Alkaline Phosphatase 82 U/L (38-126); Aspartate Aminotransferase 31 IU/L (14-36); BUN Creatinine Ratio 29.8 (6-22); Bilirubin Total 0.5 mg/dL (0.2-1.3); Blood Urea Nitrogen 17 mg/dL (7-17); Calcium 9.8 mg/dL (8.4-10.2); Carbon Dioxide 24 mmol/L (22-32); Chloride 102 mmol/L (98-107); Estimated Glomerular Filt Rate > 60 mL/min (>60); Globulin 3.5 g/dL (1.7-4.1); Glucose 92 mg/dL (80-110); HEMOLYSIS < 15 (0-50); Lipase 115 U/L (23-300); Potassium 3.8 mmol/L (3.4-5.1); Sodium 136 mmol/L (137-145); Total Protein 8.2 g/dL (6.3-8.2)
--- NOTE | 2024-01-25 19:46 | DI.CT.S_ITS ---
PROCEDURE: CT ABDOMEN PELVIS W CON INDICATIONS: RLQ pain/tend, hx back surgeries, ch pain TECHNIQUE: After the administration of intravenous contrast, axial sections acquired from the lung bases to the pubic symphysis. Coronal and sagittal reformats were performed. For radiation dose reduction, the following was used: automated exposure control, adjustment of mA and/or kV according to patient size. COMPARISON: [facility] [place], CR, XR LUMBAR SPINE 2 OR 3 VIEWS, 01/08/2024, 13:34. FINDINGS: Image quality: Diagnostic. Lower Chest: Partially imaged bilateral breast implants. Lung bases are clear. Small hiatal hernia. Heart size is normal. ABDOMEN: Liver: No solid mass. Gallbladder: No radiopaque gallstones or wall thickening. Biliary ducts: No biliary dilation. Pancreas: Homogeneous enhancement without focal lesions or pancreatic ductal dilatation. No peripancreatic inflammation or organized fluid collections. Spleen: Size is within normal limits. Adrenal Glands: No adrenal nodules. Kidneys and Ureters: No hydronephrosis. No solid mass. No complex renal cystic lesion which requires follow up. Stomach and Bowel: Normal colonic caliber, without significant wall thickening. Scattered colonic diverticula without acute inflammation. Numerous fluid-filled loops of small bowel without evidence for small bowel obstruction. Large amount of fecal material seen in the region of the cecum and proximal ascending colon. Peritoneum: No abnormal intraperitoneal fluid. No free air. Ventral Wall: No significant ventral hernia. Abdominal Nodes: No retroperitoneal or mesenteric adenopathy by size criteria. Vessels: Scattered atherosclerotic calcifications of the abdominal aorta and iliac vessels without aneurysmal dilatation. The inferior vena cava appears patent. PELVIS: Pelvic Organs: Unremarkable. Bladder: There is moderate urinary bladder distension without wall thickening or perivesicular stranding. Pelvic Nodes: No enlarged lymph nodes. Miscellaneous: No inguinal hernias are seen. Bones: No aggressive osseous abnormality. No acute compression fractures. Stable alignment status post spinal fusion of L2 through S1. IMPRESSION: 1. Numerous fluid-filled loops of small bowel without evidence for small bowel obstruction. Findings are nonspecific but may represent enteritis either infectious or inflammatory in etiology. 2. Large amount of fecal material seen in the region of the cecum and proximal ascending colon which may represent constipation. 3. Hiatal hernia. 4. Stable alignment of spinal fusion from L2 through S1. Dictated by: Raj Lvoe M.D. on 01/25/2024 at 21:18 Approved by: Raj Love M.D. on 01/25/2024 at 21:26
[2024-01-25] MEDS: SODIUM CHLORIDE 0.9% 1,000 ML 1000 ML IV (20:14)
[2024-01-25] MEDS: HYDROMORPHONE 1 MG INJ 0.5 MG IV (20:34)
[2024-01-25] MEDS: LACTULOSE 20 GM/30 ML SOLUTION PO (22:08)
[2024-01-25] MEDS: DICYCLOMINE 10 MG CAPSULE 20 MG PO (22:09)
== END 2024-01-25 22:25 | disposition home or self-care (01) ==
PROVIDERS: Emergency Provider Emergency Medicine; PCP Family Medicine
DX: K59.00 Constipation, unspecified (principal); K52.9 Noninfective gastroenteritis and colitis, unspecified; F11.90 Opioid use, unspecified, uncomplicated; R10.9 Unspecified abdominal pain
CPT/HCPCS: 36415; 74177; 80053; 81003; 83690; 85025; 96361; 96374; 96375; 99284; J1171; J2270; J2405; Q9967